=== PATIENT | female | born 1945 | race Caucasian/White ===

== ENCOUNTER 2024-03-26 09:14 | Outpatient (AMB) | payer MEDICARE, BC, SELFPAY ==
--- NOTE | 2024-03-26 09:19 | A.OFFVIS_ITS ---
Vital Signs 03/26/24 09:29 Height 5 ft 2 in Weight 182 lb BMI 33.3 BP 162/78 H Blood Pressure Location Lt brachial Position Sitting Respiration 16 Pulse 82 Pulse Source Pulse Oximeter Pulse Oximetry (%) 96 Oxygen Delivery Method Room Air Intake Visit Reasons: Back Pain Intake Note: Patient comes in for initial visit was referred by [facility]. Shes accompanied by daughter Rosanna. Reports pain 01/03. Accompanied by: Daughter Allergies latex Allergy (Mild, Verified 03/26/24 09:23) Unknown HPI Comments Details: Fina is very pleasant 78 years old female who presents today in my office with complains on pain in the lower back more to the left with radiation into the left lower extremity to the level of the knee and filling of the sensation of the he below the level of the knee. She reports that the pain is most severe when she is standing she reports pain aggravation when she attempts to sit but denies pain with prolonged sitting. She reports flexing forward and flexing backwards equally aggravate her pain. She believes that her pain is related to compression fracture of L5 vertebra which she received in June. Dr. Lena Stringer performed kyphoplasty on the patient however kyphoplasty was not very helpful for her pain control. Because of her pain she is able to sleep normally, but she can not do activities of daily living, she can take care of herself but she can not function normally. She reports that movements aggravate her pain and heat and cold applications as well as oral medications minimally helped her pain. The pain is most severe during the daytime and not as severe at night. In terms of tissue damage she reports her pain as jumping, flushing, shooting, stabbing, lancinating, sharp, lacerating, tingling, stinging, tiring, exhausting, spreading, radiating, piercing. She had multiple diagnostic studies which were performed in [facility] and [facility]. Those studies are not available for me in full extent. The only thing which I was able to see is image of the 3 slides of the MRI patient received before her kyphoplasty. She did not have MRI after kyphoplasty. Her daughter show me on the phone copy of the report of her left hip x-ray demonstrated multiple changes including arthritis of the hip joint as well as spurs in the projection of greater trochanter. She went for physical therapy at [facility] and she reports that physical therapy made it worse and she was not able to do home exercise programs. She was under care of Dr. Luna who performed ?cortisone injection ?on the patient twice. Dr. Luna performed this injections twice the nature of the injections are not known to the patient the anatomical targets are not known to the patient. Somehow she believes that they were disc injections. There is no reports available for me. Past medical history: The patient is suffering from osteoporosis. She is taking alendronate 70 mg q.week. she in the past had 2 compression fractures of L1 and L2 vertebra. Recently she fractured L5 and kyphoplasties were performed and all of them. She reports that she was diagnose with prediabetes and she controls it with the diet. She admits shortness of breath due to deconditioning. She reports fatty liver disease. She denies lung or heart problems. Past surgical history only as above kyphoplasty there is no other surgeries. She denies smoking cigarettes, she drinks 1 alcohol cocktail a week she denies caffeinated beverages and she takes cannabis gummies for pain. [facility] Surgical History (Updated 03/26/24 @ 09:34 by Glenis Hyde) H/O kyphoplasty Review of Systems Const All systems reviewed & are unremarkable except as noted in HPI and below ENT Reports Normal hearing present Card Reports no additional complaints Resp Reports no additional complaints GI Reports no additional complaints Musc Reports as per HPI Neuro Reports Normal hearing present, Denies Abnormal speech present, Denies confusion and Denies Sensory deficit (Neuro) Psych Denies confusion Endo Reports as per HPI Physical Exam Vital Signs: Last Vital Signs Pulse 82 03/26/24 09:29 Resp 16 03/26/24 09:29 BP 162/78 H 03/26/24 09:29 Pulse Ox 96 03/26/24 09:29 Oxygen Delivery Method Room Air 03/26/24 09:29 BMI result Body Mass Index 33.3 Const General: no acute distress; No confusion Nutritional Appearance: obese (Trivial obesity BMI is 33) Orientation/consciousness: patient oriented x3 and No confusion Eyes General: appearance normal, both eyes and all related structures Pupils: Equal, round and reactive pupils present EOM: EOMs intact bilaterally Neck Neck: Yes full ROM Chest Chest palpation & inspection: normal inspection of the chest Resp Effort & Inspection: normal respiratory effort, able to speak in complete sentences, normal respiratory pattern, no audible wheezes and no cough Cardio Jugular venous distension: no JVD GI Inspection: Yes normal to inspection Back/Spine/Pelvis Other: Able to stand on bilateral tiptoes in bilateral heels demonstrating normal strength of bilateral lower extremities. Flexing backwards aggravates pain slightly more than flexing forward. Juan Pablo test is positive on the left. P elvic compression test is positive on the left. Pelvic distraction test is positive on the left. Loading test is positive on the left. Lateral and medial rotation of the hip bilaterally do not cause discomfort in the groin. SLR is negative bilaterally. Dorsiflexion at maximal SLR bilateral does not cause aggravation of the pain in the back. Neuro General: patient oriented x3, gait normal and No confusion Cranial nerves: Yes CN's II-XII intact bilaterally, Yes Equal, round and reactive pupils present, Yes Normal hearing present and Yes Ability to bilaterally elevate shoulders present Speech: No Abnormal speech present Gait exam (Neuro): Normal gait present Motor exam (neuro): 5/5 motor strength present throughout Sensory Exam: No Sensory deficit (Neuro) Extrem General: No pedal edema Psych Speech and movement: Normal speech and movement present Affect: normal affect Attitude: cooperative Thought process: Normal thought process present Thought content: Normal thought content present Insight: Good insight present (Psych) Judgement: Good judgement present (Psych) Assessment & Plan Assessment & Plan (1) Sacroiliitis: Code(s): M46.1 - Sacroiliitis, not elsewhere classified Category: Medical (2) Sacroiliac joint dysfunction of left side: Code(s): M53.3 - Sacrococcygeal disorders, not elsewhere classified Category: Medical (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 I decided to schedule her for sacroiliac joint injection on the left diagnostic. Meanwhile her daughter will go to Dr. Luna's office and request the reports of the previously done injections. If those injections were not sacroiliitis I will continue to pursue sacroiliitis as a goal. If those injections were into sacroiliac joint on the left I will switch my plan to perform diagnostic medial branch block on the left L2-L3, L4, dorsal ramus L5. They will also bring me full disc of the MRI they had performed at [facility]. Evaluation of this MRI will allow me to rule out vertebra genic pain although patient does not complain on pain with prolonged sitting, she although come pain complains on pain with flexing forward and with activities and s tanding. I will see this patient for the follow-up after the procedure. Patient Instructions: I here by testify that I spent 60 minutes in conversation with this patient as well as planning her care and organizing this note. Coding Level of Care Code New Pt Level 5 (09464) Diagnoses Sacroiliitis M46.1 Sacroiliac joint dysfunction of left side M53.3 Spondylosis of lumbar region without myelopathy or radiculopathy M47.816 Osteoporosis M81.0 History of vertebral compression fracture Z87.81
[2024-03-26 09:29] VITALS: BP 162/78; PULSE 82; RESP 16; O2SAT 96; BMI 33.3
== END 2024-03-26 09:53 | disposition home or self-care (01) ==
LOC: HO.PMC 09:15
PROVIDERS: PCP Physician Assistant Medical; Visit Provider Anesthesiology
DX: M46.1 Sacroiliitis, not elsewhere classified (principal); M53.3 Sacrococcygeal disorders, not elsewhere classified; M47.816 Spondylosis without myelopathy or radiculopathy, lumbar region; M81.0 Age-related osteoporosis without current pathological fracture; Z87.81 Personal history of (healed) traumatic fracture
CPT/HCPCS: 99205

== ENCOUNTER → 2024-03-26 09:14 | Outpatient (BNVA) | payer BC, MEDICARE, SELFPAY | PROVIDERS: PCP Physician Assistant Medical; Visit Provider Anesthesiology ==

== ENCOUNTER 2024-06-16 06:21 | Outpatient (REF) | payer BC, SELFPAY | END 2024-06-16 06:22 | disposition home or self-care (01) | LOC: CF 06:21 | PROVIDERS: Visit Provider Anesthesiology | DX: Z13.89 Encounter for screening for other disorder (principal) ==

== ENCOUNTER 2024-09-01 06:12 | Outpatient (REF) | payer BC, SELFPAY ==
--- NOTE | ~2024-09-01 | FL_ITS ---
EXAMINATION: FL GUIDANCE ONLY HISTORY: M47.816 - Spondylosis without myelopathy or radiculopathy, lumbar region COMPARISON: None available. TECHNIQUE: Fluoroscopy time: 25.8 seconds. Cumulative Dose: 9.8227 mGy. DAP: 3.6915 mGym2 Images: 8. FINDINGS: Images demonstrate needles and contrast material in the regions of the left L3-4, L4-5, and L5-S1 facet joints, as well as the right L5-S1 facet joint. FL/FL guidance in treatment room IMPRESSION: Fluoroscopy during procedure. Please see procedure report for additional information. Electronically signed by: James Lance MD 09/01/2024 09:23 AM EDT
--- OUTSIDE RECORDS SUMMARY | 2024-09-01 06:15 | XMS_ITS | Clinical Summary ---
Author Organization [facility] Address [address] [place] [address] Care Team Providers Care Charger Operator Name Role Phone Braulio Merlos PA-C Primary Care Provider Allergies Active Allergy Reactions Criticality Noted Date Comments Latex 12/09/2019 Oxycodone Swelling 03/10/2020 Hydrocodone-Acetaminophen 12/09/2019 Medications Medication Sig Dispensed Refills Start Date End Date Status celecoxib (CeleBREX) 200 MG capsule Take 1 capsule (200 mg total) by mouth daily. 0 Active omeprazole (PriLOSEC) 20 MG capsule Take 1 capsule (20 mg total) by mouth daily. 0 Active traMADol (ULTRAM) 50 MG tablet Take 50 mg by mouth every 6 (six) hours as needed for pain. 0 Active atorvastatin (LIPITOR) tablet 10 mg Take 1 tablet (10 mg total) by mouth every evening. 0 Active loratadine (CLARITIN) 10 MG tablet Take 1 tablet (10 mg total) by mouth daily. 0 Active aspirin EC 81 MG tablet Take 1 tablet (81 mg total) by mouth daily. 0 Active hydrocortisone 2.5 % cream Apply topically 2 (two) times a day. 0 Active Multiple Vitamin (MULTIVITAMIN PO) Take by mouth. 0 Act kerrie Calcium Carb-Cholecalcifero l (CALCIUM 600 + D) 600-200 MG-UNIT TABS Take by mouth. 0 Active alendronate (FOSAMAX) tablet 70 mg Take 1 tablet (70 mg total) by mouth every 7 days. Take with water on empty stomach/Nothing by mouth and do not lie down for next 30 minutes 0 Active hydroxyurea (HYDREA) 500 MG capsule TAKE 1 CAPSULE (500 MG TOTAL) BY MOUTH DAILY 90 capsule 6 06/05/2023 Active Active Problems No known active problems Family History Medical History Relation Name Comments Other Brother sudden leland gging Lung cancer Father Other Father CAD in his 60's Prostate cancer Father Arthritis Mother Pancreatic cancer Other aunt Diabetes Paternal Grandmother Melanoma Paternal Grandmother Other Paternal Grandmother dermato loical disorders Uterine cancer Paternal Grandmother Relation Name Status Comments Brother Father Mother Other aunt Alive Paternal Grandmother Social History Tobacco Use Types Packs/Day Years Used Date Smoking Tobacco: Never Smokeless Tobacco: Never Alcohol Use Standard Drinks/Week Comments Yes 0 (1 standard drink = 0.6 oz pur e alcohol) Sex and Gender Information Value Date Recorded Sex Assigned at Not on file Gender Identity Not on file Sexual Orientation Not on file Job Start Date Occupation Industry Not on file Not on file Not on file Last Filed Vital Signs Vital Sign Reading Time Taken Comments Blood Pressure 150/73 11/06/2023 10:03 AM EDT Pulse 100 11/06/2023 10:03 AM EDT Temperature 36.7 ??C (98.1 ??F) 11/06/2023 10:03 AM E DT Respiratory Rate - - Oxygen Saturation 98% 11/06/2023 10:03 AM EDT Inhaled Oxygen Concentration - - Weight 84.6 kg (186 lb 9.6 oz) 11/06/2023 10:03 AM EDT Height 160 cm (5' 3 ) 11/06/2023 10:03 AM EDT Body Mass Index 33.05 11/06/2023 10:03 AM EDT Plan of Treatment Health Maintenance Due Date Last Done Comments Hepatitis C Screening 1945 COVID-19 Vaccine (#1) 1950 Depression Screening 1957 BMI Counseling 08/13/1963 Preventative Health Evaluation 08/13/1963 DTap / Tdap / Td (1 - Tdap) 1964 Fall Risk Assessment 2010 Osteoporosis Screening (DEXA Scan) 2010 RSV Adult > 60+ Yrs or (1 - 1-dose 75+ series) 2020 Influenza Vaccine (#1) 2024 3, 03/16/2022, 03/21/2021, Additional history exists Pneumococcal Vaccine Completed 09/30/2014, 06/27/19 12 Shingrix-Zoster Vaccine Completed 05/12/2019, 11/10 Hepatitis B Vaccines Aged Out No long er eligible based on patient's age to complete this topic RSV Ped < 20 months Aged Out No longe r eligible based on patient's age to complete this topic Care Teams Charger Operator Relationship Specialty Start Date End Date Braulio Merlos, PASatishC PCP - General Medical Services 10/05/20
--- OUTSIDE RECORDS SUMMARY | 2024-09-01 06:15 | XMS_ITS | Patient Health Record ---
Author Organization [facility] [place] Address [address] [place] [address] Care Team Providers Care Veneer Glue Spreader Name Role Phone Braulio [place] Primary Care Provider Unav ailable Rik Trivedi Unavailable [phone] Allergies Allergen (clinical drug ingredient) Drug/Non Drug Allergy documented on EMR Reaction Allergy Type Onset Date Status Roxicet face swelling Drug Allergy Act kerrie Reason For Referral No Information Medications Medication SIG (Take, Route, Frequency, Duration) Notes Start Date End Date Status Omeprazole 20 MG 1 tablet 30 minutes before morning meal Orally Once a day for 30 day(s) Active Hydroxyurea 500 MG 1 capsule Orally Onc e a day for 30 day(s) Active Aspir-81 Active Celecoxib 200 MG 1 capsule with food Orally Once a day for 30 day(s) Active Atorvastatin Calcium 10 MG 1 tablet Oral ly Once a day for 30 day(s) Active Immunizations Vaccine Route Administration Date Status Comme nts COVID-19 Moderna Vaccine Unknown 02/24/2021 Administered 1st 07/25/20 2nd 08/22/20 Social History Tobacco Use: Social History Observation Description Date Details (start date - stop date) Never Smoker NA - NA Tobacco Use/Smoking Question Answer Notes Are you a: nonsmoker Additional Findings: Tobacco Non-User Current no n-smoker Alcohol Screen Question Answer Notes Did you have a drink contain ing alcohol in the past year? Yes How often did you have a dri nk containing alcohol in the past year? 2 to 4 times a month (2 points) Points 2 Interpretation Negative Tobacco use other than smoking: Question Answer Notes Are you an other tobacco user? No Problems Problem Type SNOMED Code ICD Code Onset Dates Problem Status W/U Status Risk Notes Problem [id number] Leg length discrepancy (M21.70) Active confirmed Plan Of Treatment Pending Test Test Name Order Date X ray : Foot, left 3V 06/20/2021 Insurance Providers Payer Name Payer Address Payer Phone Subscriber Number Group Number Insured Name Patient Relationship to Insured Coverage Start Date Coverage End Date [employer] [address] [place] [phone] [id number] Fina Lin Self - patient is the insured [facility] [address] [place] [address] [phone] [id number] Fina Lin Self - patient is the insured Medical (General) History Medical History History ICD Code Arthritis Back,Hip,and Knee pain CAD (Cholesterol) Chicken pox Measles Numbness Osteoporosis Sciatica Surgical History Surgery Date(Month/Year)
--- OUTSIDE RECORDS SUMMARY | 2024-09-01 06:15 | XMS_ITS | Clinical Summary ---
Author Organization [facility] Address [address] [place] [address] Phone Care Team Providers Care Personnel Security Assistant Name Role Phone Braulio Merlos Primary Care Provider [phone] Allergies Active Allergy Reactions Criticality Noted Date Comments Hydrocodone-Acetaminophen 12/09/2019 Latex 12/09/2019 Oxycodone Swelling 03/10/2020 Oxycodone-Acetaminophen Numbness High 06/08/2005 Medications aspirin 81 mg EC tablet Take 1 tablet (81 mg total) by mouth 1 (one) time each day. Active atorvastatin (LIPITOR) 10 mg tablet Take 1 tablet (10 mg total) by mouth every evening. Active calcium carbonate-justo min D3 600 mg-5 mcg (200 unit) per tablet Take by mouth. Active hydrocortisone 2.5 % cream Apply topically 2 (two) times a day. Active loratadine (CLARITIN) 10 mg tablet Take 1 tablet (10 mg total) by mouth 1 (one) time each day. Active multivitamin tablet Take by mouth. Active alendronate (FOSAMAX) 70 mg tablet TAKE 1 TABLET BY MOUTH EVERY 7 DAYS 12 tablet 1 03/31/20 24 Active omeprazole (PriLOSEC) [address] capsule TAKE 1 CAPSULE BY MOUTH TWICE A DAY 180 capsule 1 04/04/20 24 Active celecoxib (CeleBREX) 200 mg capsule TAKE 1 CAPSULE BY MOUTH TWICE A DAY 180 capsule 1 05/12/20 24 Active losartan (Cozaar) 25 mg tablet Take 1 tablet (25 mg total) by mouth 1 (one) time each day. 30 each 11 07/13/19 25 026 Active brimonidine (ALPHAGAN P) 0.15 % ophthalmic solution INSTILL 1 DROP INTO RIGHT EYE EVERY 12 HOURS 05/29/19 25 Active dorzolamide (TRUSOPT) 2 % ophthalmic solution INSTILL 1 DROP INTO BOTH EYES EVERY TWELVE HOURS INSTILL 1 DROP INTO BOTH EYES EVERY 12 HOURS 07/13/19 25 Active latanoprost (XALATAN) 0.005 % ophthalmic solution INSTILL 1 DROP IN AFFECTED EYE (S) EVERY EVENING 07/22/19 25 Active timolol (TIMOPTIC-XR) 0.5 % ophthalmic gel-forming INSTILL 1 DROP INTO BOTH EYES EVERY MORNING 05/23/20 24 Active gabapentin (NEURONTIN) 300 mg capsule Take 1 capsule (300 mg total) by mouth 3 (three) times a day. 90 each 5 07/31/19 25 025 Active hydroxyurea (HYDREA) 500 mg capsule Take 1 capsule (500 mg total) by mouth 3 (three) times a week 36 capsule 1 08/27/19 25 Active hydroxyurea (HYDREA) 500 mg capsule Take 1 capsule (500 mg total) by mouth 1 (one) time each day 06/05/19 24 025 Discontinued traMADoL (ULTRAM) 50 mg tablet Take 1 tablet (50 mg total) by mouth every 6 (six) hours if needed for moderate pain for up to 7 days. Max Daily Amount: 200 mg 28 tablet 07/31/19 25 025 Active Problems Problem Noted Date Diagnosed Date Fatty liver 04/03/2024 Passage of loose stools 04/03/2024 Sacroiliitis 12/06/2023 Overview (04/03/2024): Last Assessment & Plan: Ms. Lin has persistent pain primarily at the left buttock, lower than what she is experiencing preop with less pain radiating to the hip. However, this creates significant trouble for her standing long periods of time and she is now walking with a cane. This localized pain is worst in the morning and the transition from laying to standing. She has no issues sleeping or laying on her sides and is actually most comfortable driving with an ice pack behind her back across the lumbosacral junction slightly more to the left. She was in physical therapy directed at the sacroiliitis and felt that she was making some progress. She had a Holter early due to an insurance issue and she is continue doing the home exercise program. She underwent a left SI injection by Dr. Luna on 11/22/2023 and so far has not seen any improvement. On exam, SLR is negative, strength 5/5. She has some sharp pain in the left SI region with left hip mechanical testing on internal rotation only. She is quite flexible and with external rotation, can bring her ankle over the right knee and towards her hip. At this point, she would like to resume physical therapy and a new referral slip was provided. She has follow-up with Dr. Luna next week and can discuss if any other treatment options are available. I would be happy to provide a prescription for an SI belt if PT thinks this would help her. Lumbar compression fracture 11/06/2022 Overview (04/03/2024): Last Assessment & Plan: Ms. Lin is here for second postop visit since an L5 kyphoplasty on 10/07/2023. She had some improvement in her pain immediately after surgery but describes now different set of symptoms with pain and a more caudal location focused in the left buttock and worse with standing. We obtained repeat lumbar x-rays and there was no evidence of a new fracture. She has healed well from this procedure and is undergoing treatment for sacroiliitis. 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 Overview (04/03/2024): IMO update Disorder of bone and cartilage 06/07/2005 Overview (04/03/2024): IMO update Lumbago 06/07/2005 Encounters Date Type Department Care Team Description 07/30/2024 8:30 AM EST Office Visit Adult Medicine [address] [phone] Braulio Merlos PA Compression fracture of lumbar vertebra, unspecified lumbar vertebral level, sequela (Primary Dx); Mixed hyperlipidemia; Impaired fasting blood sugar; Fatty liver; Essential thrombocytosis (CMS/HCC); JUAN-2 gene mutation; Severe obesity (BMI 35.0-39.9) with comorbidity (CMS/HCC); Prediabetes; Neuropathy; Heartburn; Hiatal hernia 07/29/2024 10:00 AM EST Office Visit [facility] Hematology Oncology [address] [place] [phone] Tequila Mota MD Essential thrombocytosis (CMS/HCC) (Primary Dx); JUAN-2 gene mutation 07/16/2024 Telephone Adult Medicine [address] [phone] Braulio Merlos PA Referral 07/13/2024 Telephone Adult Medicine [address] [phone] Braulio Merlos PA Medication Problem 06/30/2024 8:45 AM EST Office Visit Adult Medicine [address] [phone] Rodrick Donis NP Acute cystitis without hematuria (Primary Dx); Uncontrolled hypertension from Last 3 Months Immunizations Name Administration Dates Next Due Hepatitis A Adult (Havrix; V aqta) 19yo and older 12/26/2007,10/03/2006 Influenza trivalent, 0.5mL ( Fluad) 65yo and older 03/13/2023,03/16/2022,03/21/2021,02/27,02/24/2019,02/04/2018,03/24/2017 Influenza trivalent, 0.5mL, preservative free (Fluarix; FluLaval; Fluzone) ages 6mo and older (Afluria) 3 years and older 02/26/2016,02/23/2015,03/03/2014,02/10,02/22/2012,02/28/2011,03/31/2010 ,02/25/2009,04/29/2006 Influenza, Unspecified 02/26/2021 Moderna Covid-19 Bivalent, O riginal + Ba.1 (Non-US Tradename Spikevax Bivalent) 01/30/2022 Pneumococcal conjugate 13 va lent (Prevnar 13, PCV13) 2mo and older 09/30/2014 Pneumococcal polysaccharide 23 valent (Pneumovax 23) 2yo and older 06/27/2011 Respiratory syncytial virus (RSV), unspecified 01/29/2023 Td Tetanus diptheria (Tdvax) 7yo and older 07/08/2017,10/03/2006 Zoster Live 01/18/2009 Zoster recombinant (Shingrix ) 19yo and older 05/12/2019,11/10/2018 Medical History Medical History Date Comments Essential thrombocytosis DX:Esse ntial thrombocytosis (HCC);COMMENT:JUAN 2 mutation pos followed by dr. prescott Prediabetes DX:Prediabetes GERD (gastroesophageal reflux disease) DX:GERD (gastroesophageal reflux disease) Neuropathy DX:Neuropathy Mixed hyperlipidemia DX:Mixed hy perlipidemia Overweight DX:Overweight Family history of colonic polyps DX:Family history of colonic polyps;COMMENT:dad &brother pt withn hyperplastic colon polyps seen on colonoscopy in july 2006 Heartburn DX:Heartburn Hx of low back pain DX:Hx of low back pain History of osteopenia DX:History of osteopenia Family History Medical History Relation Name Comments Other: Brother sudden leland gging Lung cancer Father Other: Father CAD in his 60's Prostate cancer Father Arthritis Mother Pancreatic cancer Other aunt Diabetes Paternal Grandmother Melanoma Paternal Grandmother Other: Paternal Grandmother dermato loical disorders Uterine cancer Paternal Grandmother Relation Name Status Comments Brother Father Mother Other aunt Alive Paternal Grandmother Social History Tobacco Use Types Packs/Day Years Used Date Smoking Tobacco: Never Smokeless Tobacco: Never Tobacco Cessation:Counseling Given: Not Answered Alcohol Use Standard Drinks/Week Comments Yes 0 (1 standard drink = 0.6 oz pur e alcohol) Comments Unknown Sex and Gender Information Value Date Recorded Sex Assigned at Female 04/30/2024 9:40 AM EST Legal Sex Female 10:43 PM EST Gender Identity Female 04/30/2024 9:40 AM EST Sexual Orientation Not on file Obstetrics History Last Filed Vital Signs Vital Sign Reading Time Taken Comments Blood Pressure 111/67 07/30/2024 8:37 AM EST Pulse 64 07/30/2024 8:37 AM EST Temperature 35.8 ??C (96.5 ??F) 07/30/2024 8:37 AM ES T Respiratory Rate 14 07/30/2024 8:37 AM EST Oxygen Saturation 97% 07/29/2024 10:19 AM EST Inhaled Oxygen Concentration - - Weight 84.4 kg (186 lb) 07/30/2024 8:37 AM EST Height 157.5 cm (5' 2 ) 07/30/2024 8:37 AM EST Body Mass Index 34.02 07/30/2024 8:37 AM EST Plan of Treatment Upcoming Encounters Date Type Department Care Team (Late st Contact Info) Description 09/21/2024 8:45 AM EDT Office Visit Adult Medicine [facility] [address] [place] [address] Braulio Merlos PA [address] [place] [address] 04/28/2025 10:00 AM EST Office Visit [facility] Hematology Oncology [address] [place] [phone] Tequila Mota MD [address] [place] [address] Health Maintenance Due Date Last Done Comments Hepatitis B Vaccines (1 of 3 - Risk 3-dose series) 2005 RSV Immunization Adult Patients (1 - 1-dose 75+ series) 2020 01/29/2023 Depression Screening 05/04/2022 Falls Risk Assessment 05/04/2022 Hepatitis C Screening 05/04/2022 Medicare Annual Wellness Visit 05/04/2022 Social Influencers of Health Screening 05/04/2022 Hypertension/CHF/CAD Annual BMP Blood Test 07/24/2025 07/24/2024, 06/30/2024, 01/28/2024, Additional history exists DTaP,Tdap,and Td Vaccines (3 - Td or Tdap) 07/08/2027 07/08/2017, 10/03/2006 Cholesterol Screening (Lipid Panel) 01/27/2029 01/28/2024, 11/04/2023 Osteoporosis Screening (Bone Density Screening) 11/02/2032 11/02/2022, 09/19/2020 Hepatitis A Vaccines Completed 12/26/2007, 10/04/19 07 Pneumococcal Vaccine: 50+ Years Completed 09/30/2014, 06/27/2011 Zoster Vaccines Completed 05/12/2019, 10/25, 02/08/2018, Additional history exists RSV Immunization Patients Under 20 months Aged Out 01/29/2023 No longer eligible based on patient's age to complete this topic COVID-19 Vaccine Completed 03/25/2024, , 01/30/2022, Additional history exists Influenza Vaccine Completed 03/25/2024, , 03/16/2022, Additional history exists HIB Vaccines Aged Out No longer eligi ble based on patient's age to complete this topic HPV Vaccines Aged Out No longer eligi ble based on patient's age to complete this topic IPV Vaccines Aged Out No longer eligi ble based on patient's age to complete this topic MMR Vaccines Aged Out No longer eligi ble based on patient's age to complete this topic Meningococcal ACWY Vaccine Aged Out N o longer eligible based on patient's age to complete this topic Meningococcal B Vaccine Aged Out No l onger eligible based on patient's age to complete this topic Varicella Vaccines Aged Out No longer eligible based on patient's age to complete this topic Procedures Procedure Name Priority Date/Time Associated Diagnosis Comments ..MISCELLANEOUS REFERENCE LAB TEST 07/29/2024 MANUAL DIFFERENTIAL - SYSMEX WAM Routine 07/24/2024 12:30 PM EST Thrombocythemia, essential (CMS/HCC) CBC WITH AUTO DIFFERENTIAL Routine 07/24/2024 12:30 PM EST Thrombocythemia, essential (CMS/HCC) CBC AND DIFFERENTIAL Routine 07/24/2024 12:30 PM EST Thrombocythemia, essential (CMS/HCC) COMPREHENSIVE METABOLIC PANEL Routine 07/24/2024 12:30 PM EST Thrombocythemia, essential (CMS/HCC) BRUNO URINE CULTURE TUBE Routine 06/30/2024 10:17 AM EST Dysuria Uncontrolled hypertension URINALYSIS WITH REFLEX MICROSCOPIC AND CULTURE Routine 06/30/2024 10:16 AM EST Dysuria Uncontrolled hypertension BASIC METABOLIC PANEL Routine 06/30/2024 10:16 AM EST Dysuria Uncontrolled hypertension URINALYSIS WITH REFLEX MICROSCOPIC AND CULTURE Routine 06/30/2024 10:16 AM EST Dysuria Uncontrolled hypertension CULTURE URINE Routine 06/30/2024 10:16 AM EST Dysuria Uncontrolled hypertension DXA BONE DENSITY STUDY 1+ SITS AXIAL SKEL Routine 11/02/2022 9:46 AM EDT Prediabetes Mixed hyperlipidemia Heartburn Fatty (change of) liver, not elsewhere classified Essential (hemorrhagic) thrombocythemia (CMS/HCC) from Last 3 Months or Most Recently Relevant to Health Maintenance Results * Miscellaneous reference lab test (07/29/2024) us Provider Onbase MD LAB BLOOD ORDERABLES Final Re sult * (ABNORMAL) Manual differential (07/24/2024 12:30 PM EST) Neutrophils % 53.0 % LAB HEMETOLOGY METHOD 07/24/2024 2:01 PM EST [facility] Lymphocytes % 19.0 % LAB HEMETOLOGY METHOD 07/24/2024 2:[address] [facility] Reactive Lymphocyte 18.00 % LAB HEMETOLOGY METHOD 07/24/2024 2:[address] [facility] Monocytes % 5.0 % LAB HEMETOLOGY METHOD 07/24/2024 2:[address] [facility] Eosinophils % 4.0 % LAB HEMETOLOGY METHOD 07/24/2024 2:[address] [facility] Basophils % 1.0 % LAB HEMETOLOGY METHOD 07/24/2024 2:[address] [facility] Myelocytes % 1.0(H) % LAB HEMETOLOGY METHOD 07/24/2024 2:[address] [facility] Neutrophils Absolute Manual 3.71 1.50 - 7.00 K/mcL LAB HEMETOLOGY METHOD 07/24/2024 2:[address] [facility] Lymphocytes Absolute 1.33 1.00 - 5.00 K/mcL LAB HEMETOLOGY METHOD 07/24/2024 2:[address] [facility] Reactive Lymph Abs Manual 1.26(H) 0.00 - 0.00 lym LAB HEMETOLOGY METHOD 07/24/2024 2:[address] [facility] Monocytes Absolute Manual 0.35 0.20 - 1.00 K/mcL LAB HEMETOLOGY METHOD 07/24/2024 2:[address] [facility] Eosinophils Absolute Manual 0.28 0.00 - 0.50 K/mcL LAB HEMETOLOGY METHOD 07/24/2024 2:[address] [facility] Basophils Absolute Manual 0.07 0.00 - 0.20 K/mcL LAB HEMETOLOGY METHOD 07/24/2024 2:[address] [facility] Myelocytes Absolute Manual 0.07(H) 0.00 - 0.00 K/mcL LAB HEMETOLOGY METHOD 07/24/2024 2:[address] [facility] Rbc Morphology Consistent with indices Consistent with indices, Normal for [place] LAB HEMETOLOGY METHOD 07/24/2024 2:[address] [facility] Platelet Morphology - WAM See Note(A) Normal LAB HEMETOLOGY METHOD 07/24/2024 2:[address] [facility] Comment:PLT: Normal Blood Venous blood specimen / Unknown Venipuncture / Unknown 07/24/2024 12:30 PM EST 07/24/2024 1:16 PM EST us Tequila Mota MD LAB BLOOD ORDERABLES Final R esult [facility] [address] [place] [address], * (ABNORMAL) CBC auto differential (07/24/2024 12:30 PM EST) WBC 7.0 4.8 - 10.8 K/mcL LAB HEMETOLOGY METHOD 07/24/2024 2:[address] [facility] RBC 4.10 3.80 - 4.80 M/mcL LAB HEMETOLOGY METHOD 07/24/2024 2:[address] [facility] Hemoglobin 12.9 11.5 - 16.0 g/dL LAB HEMETOLOGY METHOD 07/24/2024 2:[address] [facility] Hematocrit 40.0 35.0 - 47.0 % LAB HEMETOLOGY METHOD 07/24/2024 2:[address] [facility] MCV 97.3 79.0 - 98.0 FL LAB HEMETOLOGY METHOD 07/24/2024 2:[address] [facility] MCH 31.4 27.0 - 32.0 pcg LAB HEMETOLOGY METHOD 07/24/2024 2:[address] [facility] MCHC 32.3 32.0 - 37.0 g/dL LAB HEMETOLOGY METHOD 07/24/2024 2:01 PM EST [facility] RDW 13.7 11.0 - 15.0 % LAB HEMETOLOGY METHOD 07/24/2024 2:[address] [facility] Platelets 891(H) 130 - 400 K/mcL LAB HEMETOLOGY METHOD 07/24/2024 2:[address] [facility] MPV 9.5 7.0 - 11.0 FL LAB HEMETOLOGY METHOD 07/24/2024 2:01 PM EST [facility] NRBC 0.0 <1.0 % LAB HEMETOLOGY METHOD 07/24/2024 2:[address] [facility] NRBC Absolute 0.00 <0.10 K/mcL LAB HEMETOLOGY METHOD 07/24/2024 2:[address] [facility] Blood Venous blood specimen / Unknown Venipuncture / Unknown 07/24/2024 12:30 PM EST 07/24/2024 1:16 PM EST us Tequila Mota MD LAB BLOOD ORDERABLES Final R esult [facility] [address] [place] [address], * (ABNORMAL) Comprehensive metabolic panel (07/24/2024 12:30 PM EST) Sodium 135 133 - 145 mmol/L LAB CHEMISTRY METHOD 07/24/2024 1:[address] [facility] Potassium 4.5 3.5 - 5.5 mmol/L LAB CHEMISTRY METHOD 07/24/2024 1:[address] [facility] Chloride 102 96 - 110 mmol/L LAB CHEMISTRY METHOD 07/24/2024 1:[address] [facility] CO2 24 21 - 32 mmol/L LAB CHEMISTRY METHOD 07/24/2024 1:[address] [facility] Anion Gap 9 3 - 11 LAB CHEMISTRY METHOD 07/24/2024 1:[address] [facility] Glucose 154(H) 70 - 100 mg/dL LAB CHEMISTRY METHOD 07/24/2024 1:[address] [facility] BUN 16 5 - 25 mg/dL LAB CHEMISTRY METHOD 07/24/2024 1:[address] [facility] Creatinine 0.66 0.50 - 1.10 mg/dL LAB CHEMISTRY METHOD 07/24/2024 1:[address] [facility] eGFR 90 >=60 mL/min/1. 73m2 LAB CHEMISTRY METHOD 07/24/2024 1:[address] [facility] Comment:Calculation based on the??Chronic Kidney Disease Epidemiology Collaboration (CKD-EPI) equation refit??without adjustment for race. BUN/Creatinine Ratio 24.2 LAB CHEMISTRY METHOD 07/24/2024 1:[address] [facility] Calcium 9.8 8.5 - 10.5 mg/dL LAB CHEMISTRY METHOD 07/24/2024 1:[address] [facility] AST (SGOT) 23 10 - 42 unit/L LAB CHEMISTRY METHOD 07/24/2024 1:[address] [facility] ALT (SGPT) 29 10 - 60 unit/L LAB CHEMISTRY METHOD 07/24/2024 1:[address] [facility] Alkaline Phosphatase 62 42 - 121 unit/L LAB CHEMISTRY METHOD 07/24/2024 1:[address] [facility] Total Protein 6.8 6.0 - 8.0 g/dL LAB CHEMISTRY METHOD 07/24/2024 1:[address] [facility] Albumin 3.6 3.2 - 5.0 g/dL LAB CHEMISTRY METHOD 07/24/2024 1:[address] [facility] Total Bilirubin 0.8 0.0 - 1.4 mg/dL LAB CHEMISTRY METHOD 07/24/2024 1:[address] [facility] Blood Venous blood specimen / Unknown Venipuncture / Unknown 07/24/2024 12:30 PM EST 07/24/2024 1:17 PM EST Tequila Mota MD LAB BLOOD ORDERABLES Final R esult [facility] [address] [place] [address], [place] [phone] * Bruno urine culture tube (06/30/2024 10:17 AM EST) Pathologist [facility] Extra Tube Hold for add-ons. 06/30/2024 12:[address] [facility] Comment:Auto resulted. Urine Urine specimen obtained by clean catch procedure / Unknown Non-blood Collection / Unknown 06/30/2024 10:17 AM EST 06/30/2024 10:17 AM EST Rodrick Donis PERFUME COMPOUNDER LAB URINE ORDERABLES Final R esult Performing Organization Address City/[facility]/ZIP Co de Phone Number [facility] [address] [place] [address], [place] [phone] * (ABNORMAL) Urinalysis with reflex microscopic and culture (06/30/2024 10:16 AM EST) Pathologist [facility] Specific [place] Urine 1.012 1.003 - 1.030 LAB URINALYSIS - AUTOMATED METHOD 06/30/2024 12:[address] [facility] pH, Urine 5.0 5.0 - 8.0 pH LAB URINALYSIS - AUTOMATED METHOD 06/30/2024 12:[address] [facility] Leukocytes, Urine Large(A) Negative LAB URINALYSIS - AUTOMATED METHOD 06/30/2024 12:[address] [facility] Nitrite, Urine Positive(A) Negative LAB URINALYSIS - AUTOMATED METHOD 06/30/2024 12:[address] [facility] Protein, Urine Trace <=Trace mg/dL LAB URINALYSIS - AUTOMATED METHOD 06/30/2024 12:[address] [facility] Glucose, Urine Negative Negative mg/dL LAB URINALYSIS - AUTOMATED METHOD 06/30/2024 12:[address] [facility] Ketones, Urine Negative Negative mg/dL LAB URINALYSIS - AUTOMATED METHOD 06/30/2024 12:[address] [facility] Urobilinogen , Urine 1.0 0.2 - 1.0 mg/dL LAB URINALYSIS - AUTOMATED METHOD 06/30/2024 12:[address] [facility] Bilirubin, Urine Small(A) Negative LAB URINALYSIS - AUTOMATED METHOD 06/30/2024 12:[address] [facility] Blood, Urine Negative Negative LAB URINALYSIS - AUTOMATED METHOD 06/30/2024 12:[address] [facility] RBC, Urine 7.6(H) 0 - 4 /HPF LAB URINALYSIS - AUTOMATED METHOD 06/30/2024 12:[address] [facility] WBC, Urine 13.2(H) 0 - 4 /HPF LAB URINALYSIS - AUTOMATED METHOD 06/30/2024 12:[address] [facility] Squamous Epithelial, Urine 32 0 - 60 /LPF LAB URINALYSIS - AUTOMATED METHOD 06/30/2024 12:[address] [facility] Bacteria, Urine Many(A) Negative /HPF LAB URINALYSIS - AUTOMATED METHOD 06/30/2024 12:[address] [facility] Hyaline Casts, Urine 2.0 0 - 3 /LPF LAB URINALYSIS - AUTOMATED METHOD 06/30/2024 12:[address] [facility] Urine Urine specimen obtained by clean catch procedure / Unknown Non-blood Collection / Unknown 06/30/2024 10:16 AM EST 06/30/2024 10:16 AM EST Rodrick Donis PERFUME COMPOUNDER LAB URINE ORDERABLES Final R esult Performing Organization Address City/[facility]/ZIP Co de Phone Number [facility] [address] [place] [address], [place] [phone] * (ABNORMAL) Culture urine (06/30/2024 10:16 AM EST) Culture, Urine 50,000-100,000 CFU/mL Escherichia coli(A) [place] 07/02/2024 10:20 AM EST [facility] Urine Urine specimen obtained by clean catch procedure / Unknown Non-blood Collection / Unknown 06/30/2024 10:16 AM EST 06/30/2024 12:00 PM EST Narrative Organism Antibiotic Method Susceptibility Escherichia coli Amoxicillin/Clavulanate [place]AK[place] <=2 ug/ml: Susceptible Escherichia coli Ampicillin/Sulbactam [place] <=2 ug/ml: Susceptible Escherichia coli Piperacillin/Tazobactam [place] <=4 ug/ml: Susceptible Escherichia coli Cefazolin (Urine) [place] 2 ug/ml: Susceptible Escherichia coli Cefoxitin [place] <=4 ug/ml: Susceptible Escherichia coli Ceftazidime [place] <=0.5 ug/ml: Susceptible Escherichia coli Ceftriaxone [place] <=0.25 ug/ml: Susceptible Escherichia coli Cefepime [place] <=0.12 ug/ml: Susceptible Escherichia coli Meropenem [place] <=0.25 ug/ml: Susceptible Escherichia coli Amikacin [place] 2 ug/ml: Susceptible Escherichia coli Gentamicin [place] <=1 ug/ml: Susceptible Escherichia coli Ciprofloxacin [place] <=0.06 ug/ml: Susceptible Escherichia coli Levofloxacin [place] <=0.12 ug/ml: Susceptible Escherichia coli Nitrofurantoin [place] <=16 ug/ml: Susceptible Escherichia coli Trimethoprim/Sulfamethoxazole [place] <=20 ug/ml: Susceptible Rodrick Donis PERFUME COMPOUNDER LAB MICROBIOLOGY - GENERAL O RDERABLES Final Result [facility] [address] [place] [address], [place] [phone] * (ABNORMAL) Basic metabolic panel (06/30/2024 10:16 AM EST) Sodium 136 133 - 145 mmol/L LAB CHEMISTRY METHOD 06/30/2024 12:[address] [facility] Potassium 4.5 3.5 - 5.5 mmol/L LAB CHEMISTRY METHOD 06/30/2024 12:[address] [facility] Chloride 103 96 - 110 mmol/L LAB CHEMISTRY METHOD 06/30/2024 12:[address] [facility] CO2 27 21 - 32 mmol/L LAB CHEMISTRY METHOD 06/30/2024 12:[address] [facility] Anion Gap 6 3 - 11 LAB CHEMISTRY METHOD 06/30/2024 12:[address] [facility] Glucose 122(H) 70 - 100 mg/dL LAB CHEMISTRY METHOD 06/30/2024 12:[address] [facility] BUN 18 5 - 25 mg/dL LAB CHEMISTRY METHOD 06/30/2024 12:[address] [facility] Creatinine 0.70 0.50 - 1.10 mg/dL LAB CHEMISTRY METHOD 06/30/2024 12:[address] [facility] eGFR 89 >=60 mL/min/1. 73m2 LAB CHEMISTRY METHOD 06/30/2024 12:[address] [facility] Comment:Calculation based on the??Chronic Kidney Disease Epidemiology Collaboration (CKD-EPI) equation refit??without adjustment for race. BUN/Creatinine Ratio 25.7 LAB CHEMISTRY METHOD 06/30/2024 12:[address] [facility] Calcium 9.7 8.5 - 10.5 mg/dL LAB CHEMISTRY METHOD 06/30/2024 12:[address] [facility] Blood Venous blood specimen / Unknown Venipuncture / Unknown 06/30/2024 10:16 AM EST 06/30/2024 10:16 AM EST Rodrick Donis NP LAB BLOOD ORDERABLES Final R esult [facility] [address] [place] [address], * DXA BONE DENSITY STUDY 1+ SITS AXIAL SKEL (11/02/2022 9:46 AM EDT) Anatomical Region Laterality Modality Bone Densitometr y 10/05/2022 8:44 AM EDT Narrative 11/02/2022 12:44 PM EDT BONE DENSITY (DEXA) ? Lumbar Spine T-score is -1.9. ?? (SD relative to 20-29 y/o adult) Z-score is 0.7. ??(SD relative to age matched peers) This is considered osteopenia by WHO criteria. Left Hip T-score is -2.0. Z-score is 0.2. This is considered osteopenia by WHO criteria. Lateral view of the spine demonstrates severe compression of T12 vertebral body and moderate compression of L1 vertebral body. IMPRESSION: In the absence of trauma, compression fractures are considered presumptive evidence of osteoporosis. ??Clinical correlation suggested. The [facility] Department of Internal Medicine recommends using National Osteoporosis Foundation (NOF) guidelines in treatment decisions related to osteoporosis. NOF guidelines suggest considering treatment for postmenopausal women and men aged 50 or older presenting with the following: History of hip or vertebral fracture. T-score = -2.5 (DXA) at the femoral neck, total hip, or spine, after appropriate evaluation to exclude secondary causes. Low bone mass (T-score between -1.0 and -2.5 at the femoral neck or spine) AND a 10-year probability of a hip fracture = 3% OR a 10-year probability of a major osteoporosis-related fracture = 20% based on the [place]-adapted WHO algorithm Please note that all treatment decisions require clinical judgment and consideration of individual patient factors, including patient preferences, co-morbidities, previous drug use, risk factors not captured in the FRAX model (e.g., frailty, falls, vitamin D deficiency, increased bone turnover, interval significant decline in bone density) and possible under- or over-estimation of fracture risk by FRAX. Optional alternative screening schedule based on atul Bolanos., [facility] June 14, 2011 for patients with osteopenia (based on hip BMD T-score) is as follows: * ??advanced osteopenia (T scores -2.00 to -2.49), BMD testing every year * ??moderate osteopenia (T scores -1.50 to -1.99), BMD testing every 5 years mild osteopenia or normal BMD (T scores -1.50 and higher), BMD testing every 15 years Procedure Note Avril Maloney MD - 07/02/2023 BONE DENSITY (DEXA) Lumbar Spine T-score is -1.9. (SD relative to 20-29 y/o adult) Z-score is 0.7. (SD relative to age matched peers) This is considered osteopenia by WHO criteria. Left Hip T-score is -2.0. Z-score is 0.2. This is considered osteopenia by WHO criteria. Lateral view of the spine demonstrates severe compression of T12 vertebralbody and moderate compression of L1 vertebral body. IMPRESSION: In the absence of trauma, compression fractures are considered presumptiveevidence of osteoporosis. Clinical correlation suggested. The [facility] Department of Internal Medicine recommendsusing National Osteoporosis Foundation (NOF) guidelines in treatment decisions related toosteoporosis. NOF guidelines suggest considering treatment for postmenopausal women and menaged 50 or older presenting with the following: History of hip or vertebral fracture. T-score = -2.5 (DXA) at the femoral neck, total hip, or spine, afterappropriate evaluation to exclude secondary causes. Low bone mass (T-score between -1.0 and -2.5 at the femoral neck or spine)AND a 10-year probability of a hip fracture = 3% OR a 10-year probability of a majorosteoporosis-related fracture = 20% based on the [place]-adapted WHO algorithm Please note that all treatment decisions require clinical judgment andconsideration of individual patient factors, including patient preferences, co- morbidities,previous drug use, risk factors not captured in the FRAX model (e.g., frailty, falls, vitaminD deficiency, increased bone turnover, interval significant decline in bone density) andpossible under- or over-estimation of fracture risk by FRAX. Optional alternative screening schedule based on atul Bolanos., NEJMJanuary 2011 for patients with osteopenia (based on hip BMD T-score) is as follows: * advanced osteopenia (T scores -2.00 to -2.49), BMD testing every year * moderate osteopenia (T scores -1.50 to -1.99), BMD testing every 5years mild osteopenia or normal BMD (T scores -1.50 and higher), BMD testingevery 15 years Braulio NAYAK IMAnnemarie DXA PROCEDURES Final Result from Last 3 Months or Most Recently Relevant to Health Maintenance Insurance [facility] Care Teams Personnel Security Assistant Relationship Specialty Start Date End Date Braulio Merlos PA [address] [place] [address] PCP - General Internal Medicine 08/03/20
== END 2024-09-01 06:13 | disposition home or self-care (01) ==
LOC: CF 06:12
PROVIDERS: Visit Provider Anesthesiology
DX: M47.816 Spondylosis without myelopathy or radiculopathy, lumbar region (principal)
CPT/HCPCS: 64493; 64494; J2003; J2795; Q9967

== ENCOUNTER 2024-09-01 08:05 | Outpatient (AMB) | payer BC, SELFPAY ==
[2024-09-01 08:13] VITALS: BP 131/62; PULSE 98; RESP 16; O2SAT 65
--- NOTE | 2024-09-01 08:13 | A.OFFVIS_ITS ---
Vital Signs 09/01/24 08:13 09/01/24 09:12 BP 131/62 148/67 H Blood Pressure Location Lt brachial Lt brachial Position Sitting Sitting Respiration 16 16 Pulse 98 69 Pulse Source Pulse Oximeter Pulse Oximeter Pulse Oximetry (%) 65 L 97 Oxygen Delivery Method Room Air Room Air Intake Visit Reasons: LEFT DIAGNOSTIC L2, L3, L4, DRL5 MBB Manager Grant Required: No Allergies latex Allergy (Mild, Verified 09/01/24 08:14) Unknown Medication List - Last Reconciled 09/01/24 by Rosalia Guzman LPN alendronate 70 mg PO QWEEK aspirin 81 mg PO DAILY atorvastatin 10 mg PO BEDTIME brimonidine 0.15% drps ophthalmic (eye) celecoxib mg PO BID gabapentin 300 mg PO DAILY hydroxyurea 500 mg PO DAILY latanoprost 0.005% drps ophthalmic (eye) omeprazole 20 mg PO BID timolol maleate 0.5% ophthalmic (eye) [facility] Surgical History (Updated 03/26/24 @ 09:34 by Glenis Hyde) H/O kyphoplasty Physical Exam Vital Signs: Last Vital Signs Pulse 69 09/01/24 09:12 Resp 16 09/01/24 09:12 BP 148/67 H 09/01/24 09:12 Pulse Ox 97 09/01/24 09:12 Oxygen Delivery Method Room Air 09/01/24 09:12 Assessment & Plan Assessment & Plan (1) Spondylosis of lumbar region without myelopathy or radiculopathy: Code(s): M47.816 - Spondylosis without myelopathy or radiculopathy, lumbar region Category: Medical Plan Diagnostic left medial branch block L3, L4, dorsal ramus L5. Informed consent was thoroughly explained to the patient before the procedure.? The patient came to the operating room.?She was positioned prone on operating table with a pillow under her abdomen.? Time-out was performed delineating correct site and side of the procedure, nature of the injection, name and date of of the patient. The lower back and upper buttocks of the patient was prepped with ChloraPrep and draped with sterile utility towels.? C-arm was brought over the operating field and the point of interest were delineated as confluence of the superior articular process of L4 vertebra and L5 vertebra on the left with corresponding transverse process on the left, as well as confluence of the superior articular process of S1 on the left with sacral ala on the left. The point of interest projection to the skin was injected with small amount of mixture of lidocaine 2% and ropivacaine 0.5%. After that 22 gauge 3-1/2 inch needle was driven to point of interest in tunnel vision fashion. When needle gently contacted the bone injection of the contrast was performed delineating no intravascular and no intrathecal spread of the contrast. After that injection of the small amount of ropivacaine 0.5% less than 1 cc into each target site was performed. Upon completion of the injections the needle was removed sterile Band-Aids were applied. The patient tolerated procedure well. She was given a pain diary to complete after the procedure. Orders: Orders FL guidance in treatment room Today M47.816 - Spondylosis without myelopathy or radiculopathy, lumbar region Coding Level of Care Code Procedure Only Diagnoses Spondylosis of lumbar region without myelopathy or radiculopathy M47.816
--- OUTSIDE RECORDS SUMMARY | 2024-09-01 08:16 | XMS_ITS | Clinical Summary ---
Author Organization [facility] Address [address] [place] [address] Care Team Providers Care Auto Body Repair Estimator Name Role Phone Braulio Merlos PA-C Primary [...] age to complete this topic Care Teams Auto Body Repair Estimator Relationship Specialty Start Date End Date Braulio Merlos, PASatishC PCP - General Medical Services 10/05/20
--- OUTSIDE RECORDS SUMMARY | 2024-09-01 08:16 | XMS_ITS | Clinical Summary ---
Author Organization [facility] Address [address] [place] [address] Phone Care Team Providers Care Requirements Engineer Name Role Phone Braulio Merlos Primary Care Provider [phone] Allergies Active Allergy Reactions Criticality Noted Date [...] 8:30 AM EST Office Visit Adult Medicine [address] [phone] Braulio Merlos PA Compression fracture of lumbar vertebra, unspecified lumbar vertebral level, sequela (Primary Dx); Mixed hyperlipidemia; Impaired fasting blood sugar; Fatty liver; Essential thrombocytosis (CMS/HCC); JUAN-2 gene mutation; Severe obesity (BMI 35.0-39.9) with comorbidity (CMS/HCC); Prediabetes; Neuropathy; Heartburn; Hiatal hernia 07/29/2024 10:00 AM EST Office Visit [facility] Hematology Oncology [address] [place] [phone] Tequila Mota MD Essential thrombocytosis (CMS/HCC) (Primary Dx); JUAN-2 gene mutation 07/16/2024 Telephone Adult Medicine [address] [phone] Braulio Merlos PA Referral 07/13/2024 Telephone Adult Medicine [address] [phone] Braulio Merlos PA Medication Problem 06/30/2024 8:45 AM EST Office Visit Adult Medicine [address] [phone] Rodrick Donis NP Acute cystitis without hematuria [...] 8:45 AM EDT Office Visit Adult Medicine [facility] [address] [place] [phone] Braulio Merlos PA [address] [place] [address] 04/28/2025 10:00 AM EST Office Visit [facility] Hematology Oncology [address] [place] [phone] Tequila Mota MD [address] [place] [address] Health Maintenance Due Date Last Done Comments [...] LAB HEMETOLOGY METHOD 07/24/2024 2:01 PM EST [facility] LAB Lymphocytes % 19.0 % LAB HEMETOLOGY METHOD 07/24/2024 2:01 PM [facility] LAB Reactive Lymphocyte 18.00 % LAB HEMETOLOGY METHOD 07/24/2024 2:01 PM [facility] LAB Monocytes % 5.0 % LAB HEMETOLOGY METHOD 07/24/2024 2:01 PM [facility] LAB Eosinophils % 4.0 % LAB HEMETOLOGY METHOD 07/24/2024 2:01 PM [facility] LAB Basophils % 1.0 % LAB HEMETOLOGY METHOD 07/24/2024 2:01 PM [facility] LAB Myelocytes % 1.0(H) % LAB HEMETOLOGY METHOD 07/24/2024 2:01 PM [facility] LAB Neutrophils Absolute Manual 3.71 1.50 - 7.00 K/mcL LAB HEMETOLOGY METHOD 07/24/2024 2:01 PM [facility] LAB Lymphocytes Absolute 1.33 1.00 - 5.00 K/mcL LAB HEMETOLOGY METHOD 07/24/2024 2:01 PM [facility] LAB Reactive Lymph Abs Manual 1.26(H) 0.00 - 0.00 lym LAB HEMETOLOGY METHOD 07/24/2024 2:01 PM [facility] LAB Monocytes Absolute Manual 0.35 0.20 - 1.00 K/mcL LAB HEMETOLOGY METHOD 07/24/2024 2:01 PM [facility] LAB Eosinophils Absolute Manual 0.28 0.00 - 0.50 K/mcL LAB HEMETOLOGY METHOD 07/24/2024 2:01 PM [facility] LAB Basophils Absolute Manual 0.07 0.00 - 0.20 K/mcL LAB HEMETOLOGY METHOD 07/24/2024 2:01 PM [facility] LAB Myelocytes Absolute Manual 0.07(H) 0.00 - 0.00 K/mcL LAB HEMETOLOGY METHOD 07/24/2024 2:01 PM [facility] LAB Rbc Morphology Consistent with indices Consistent with indices, Normal for [place] LAB HEMETOLOGY METHOD 07/24/2024 2:01 PM [facility] LAB Platelet Morphology - WAM See Note(A) Normal LAB HEMETOLOGY METHOD 07/24/2024 2:01 PM [facility] LAB Comment:PLT: Normal Blood Venous blood specimen / Unknown Venipuncture / Unknown 07/24/2024 12:30 PM EST 07/24/2024 1:16 PM EST us Tequila Mota MD LAB BLOOD ORDERABLES Final R esult [facility] [address] [place] [address], * (ABNORMAL) CBC auto differential (07/24/2024 12:30 PM EST) WBC 7.0 4.8 - 10.8 K/mcL LAB HEMETOLOGY METHOD 07/24/2024 2:01 PM [facility] RBC 4.10 3.80 - 4.80 M/mcL LAB HEMETOLOGY METHOD 07/24/2024 2:01 PM [facility] LAB Hemoglobin 12.9 11.5 - 16.0 g/dL LAB HEMETOLOGY METHOD 07/24/2024 2:01 PM [facility] LAB Hematocrit 40.0 35.0 - 47.0 % LAB HEMETOLOGY METHOD 07/24/2024 2:01 PM [facility] LAB MCV 97.3 79.0 - 98.0 FL LAB HEMETOLOGY METHOD 07/24/2024 2:01 PM [facility] LAB MCH 31.4 27.0 - 32.0 pcg LAB HEMETOLOGY METHOD 07/24/2024 2:01 PM [facility] LAB MCHC 32.3 32.0 - 37.0 g/dL LAB HEMETOLOGY METHOD 07/24/2024 2:01 PM EST [facility] RDW 13.7 11.0 - 15.0 % LAB HEMETOLOGY METHOD 07/24/2024 2:01 PM [facility] LAB Platelets 891(H) 130 - 400 K/mcL LAB HEMETOLOGY METHOD 07/24/2024 2:01 PM [facility] LAB MPV 9.5 7.0 - 11.0 FL LAB HEMETOLOGY METHOD 07/24/2024 2:01 PM EST [facility] LAB NRBC 0.0 <1.0 % LAB HEMETOLOGY METHOD 07/24/2024 2:01 PM [facility] LAB NRBC Absolute 0.00 <0.10 K/mcL LAB HEMETOLOGY METHOD 07/24/2024 2:01 PM [facility] LAB Blood Venous blood specimen / Unknown Venipuncture / Unknown 07/24/2024 12:30 PM EST 07/24/2024 1:16 PM EST us Tequila Mota MD LAB BLOOD ORDERABLES Final R esult [facility] [address] [place] [address], * (ABNORMAL) Comprehensive metabolic panel (07/24/2024 12:30 PM EST) Sodium 135 133 - 145 mmol/L LAB CHEMISTRY METHOD 07/24/2024 1:53 PM [facility] Potassium 4.5 3.5 - 5.5 mmol/L LAB CHEMISTRY METHOD 07/24/2024 1:53 PM [facility] LAB Chloride 102 96 - 110 mmol/L LAB CHEMISTRY METHOD 07/24/2024 1:53 PM [facility] CO2 24 21 - 32 mmol/L LAB CHEMISTRY METHOD 07/24/2024 1:53 PM [facility] Anion Gap 9 3 - 11 LAB CHEMISTRY METHOD 07/24/2024 1:53 PM [facility] LAB Glucose 154(H) 70 - 100 mg/dL LAB CHEMISTRY METHOD 07/24/2024 1:53 PM [facility] BUN 16 5 - 25 mg/dL LAB CHEMISTRY METHOD 07/24/2024 1:53 PM [facility] Creatinine 0.66 0.50 - 1.10 mg/dL LAB CHEMISTRY METHOD 07/24/2024 1:53 PM [facility] LAB eGFR 90 >=60 mL/min/1. 73m2 LAB CHEMISTRY METHOD 07/24/2024 1:53 PM [facility] LAB Comment:Calculation based on the??Chronic Kidney Disease Epidemiology Collaboration (CKD-EPI) equation refit??without adjustment for race. BUN/Creatinine Ratio 24.2 LAB CHEMISTRY METHOD 07/24/2024 1:53 PM [facility] Calcium 9.8 8.5 - 10.5 mg/dL LAB CHEMISTRY METHOD 07/24/2024 1:53 PM [facility] AST (SGOT) 23 10 - 42 unit/L LAB CHEMISTRY METHOD 07/24/2024 1:53 PM [facility] ALT (SGPT) 29 10 - 60 unit/L LAB CHEMISTRY METHOD 07/24/2024 1:53 PM [facility] Alkaline Phosphatase 62 42 - 121 unit/L LAB CHEMISTRY METHOD 07/24/2024 1:53 PM [facility] Total Protein 6.8 6.0 - 8.0 g/dL LAB CHEMISTRY METHOD 07/24/2024 1:53 PM [facility] Albumin 3.6 3.2 - 5.0 g/dL LAB CHEMISTRY METHOD 07/24/2024 1:53 PM [facility] Total Bilirubin 0.8 0.0 - 1.4 mg/dL LAB CHEMISTRY METHOD 07/24/2024 1:53 PM [facility] Blood Venous blood specimen / Unknown Venipuncture / Unknown 07/24/2024 12:30 PM EST 07/24/2024 1:17 PM EST Tequila Mota MD LAB BLOOD ORDERABLES Final R esult [facility] [address] [place] [address], [place] [phone] * Bruno urine culture tube (06/30/2024 10:17 AM EST) Pathologist [facility] Extra Tube Hold for add-ons. 06/30/2024 12:01 PM [facility] LAB Comment:Auto resulted. Urine Urine specimen obtained by clean catch procedure / Unknown Non-blood Collection / Unknown 06/30/2024 10:17 AM EST 06/30/2024 10:17 AM EST Rodrick Donis HAND FORMER HELPER LAB URINE ORDERABLES Final R esult Performing Organization Address City/[facility]/ZIP Co de Phone Number [facility] [address] [place] [address], [place] [phone] * (ABNORMAL) Urinalysis with reflex microscopic and culture (06/30/2024 10:16 AM EST) Pathologist [facility] Specific [place] Urine 1.012 1.003 - 1.030 LAB URINALYSIS - AUTOMATED METHOD 06/30/2024 12:00 PM [facility] pH, Urine 5.0 5.0 - 8.0 pH LAB URINALYSIS - AUTOMATED METHOD 06/30/2024 12:00 PM [facility] Leukocytes, Urine Large(A) Negative LAB URINALYSIS - AUTOMATED METHOD 06/30/2024 12:00 PM [facility] Nitrite, Urine Positive(A) Negative LAB URINALYSIS - AUTOMATED METHOD 06/30/2024 12:00 PM [facility] Protein, Urine Trace <=Trace mg/dL LAB URINALYSIS - AUTOMATED METHOD 06/30/2024 12:00 PM [facility] Glucose, Urine Negative Negative mg/dL LAB URINALYSIS - AUTOMATED METHOD 06/30/2024 12:00 PM [facility] Ketones, Urine Negative Negative mg/dL LAB URINALYSIS - AUTOMATED METHOD 06/30/2024 12:00 PM [facility] Urobilinogen , Urine 1.0 0.2 - 1.0 mg/dL LAB URINALYSIS - AUTOMATED METHOD 06/30/2024 12:00 PM [facility] Bilirubin, Urine Small(A) Negative LAB URINALYSIS - AUTOMATED METHOD 06/30/2024 12:00 PM [facility] Blood, Urine Negative Negative LAB URINALYSIS - AUTOMATED METHOD 06/30/2024 12:00 PM [facility] RBC, Urine 7.6(H) 0 - 4 /HPF LAB URINALYSIS - AUTOMATED METHOD 06/30/2024 12:00 PM [facility] WBC, Urine 13.2(H) 0 - 4 /HPF LAB URINALYSIS - AUTOMATED METHOD 06/30/2024 12:00 PM [facility] Squamous Epithelial, Urine 32 0 - 60 /LPF LAB URINALYSIS - AUTOMATED METHOD 06/30/2024 12:00 PM [facility] Bacteria, Urine Many(A) Negative /HPF LAB URINALYSIS - AUTOMATED METHOD 06/30/2024 12:00 PM [facility] Hyaline Casts, Urine 2.0 0 - 3 /LPF LAB URINALYSIS - AUTOMATED METHOD 06/30/2024 12:00 PM [facility] Urine Urine specimen obtained by clean catch procedure / Unknown Non-blood Collection / Unknown 06/30/2024 10:16 AM EST 06/30/2024 10:16 AM EST Rodrick Donis HAND FORMER HELPER LAB URINE ORDERABLES Final R esult Performing Organization Address City/[facility]/ZIP Co de Phone Number [facility] [address] [place] [address], [place] [phone] * (ABNORMAL) Culture urine (06/30/2024 10:16 AM [...] Trimethoprim/Sulfamethoxazole [place] <=20 ug/ml: Susceptible Rodrick Donis HAND FORMER HELPER LAB MICROBIOLOGY - GENERAL O RDERABLES Final Result [facility] [address] [place] [address], [place] [phone] * (ABNORMAL) Basic metabolic panel (06/30/2024 10:16 AM EST) Sodium 136 133 - 145 mmol/L LAB CHEMISTRY METHOD 06/30/2024 12:49 PM [facility] Potassium 4.5 3.5 - 5.5 mmol/L LAB CHEMISTRY METHOD 06/30/2024 12:49 PM [facility] Chloride 103 96 - 110 mmol/L LAB CHEMISTRY METHOD 06/30/2024 12:49 PM [facility] CO2 27 21 - 32 mmol/L LAB CHEMISTRY METHOD 06/30/2024 12:49 PM [facility] Anion Gap 6 3 - 11 LAB CHEMISTRY METHOD 06/30/2024 12:49 PM [facility] Glucose 122(H) 70 - 100 mg/dL LAB CHEMISTRY METHOD 06/30/2024 12:49 PM [facility] BUN 18 5 - 25 mg/dL LAB CHEMISTRY METHOD 06/30/2024 12:49 PM [facility] Creatinine 0.70 0.50 - 1.10 mg/dL LAB CHEMISTRY METHOD 06/30/2024 12:49 PM [facility] eGFR 89 >=60 mL/min/1. 73m2 LAB CHEMISTRY METHOD 06/30/2024 12:49 PM [facility] Comment:Calculation based on the??Chronic Kidney Disease Epidemiology Collaboration (CKD-EPI) equation refit??without adjustment for race. BUN/Creatinine Ratio 25.7 LAB CHEMISTRY METHOD 06/30/2024 12:49 PM [facility] Calcium 9.7 8.5 - 10.5 mg/dL LAB CHEMISTRY METHOD 06/30/2024 12:49 PM [facility] Blood Venous blood specimen / Unknown Venipuncture / Unknown 06/30/2024 10:16 AM EST 06/30/2024 10:16 AM EST Rodrick Donis NP LAB BLOOD ORDERABLES Final R esult [facility] [address] [place] [address], * DXA BONE DENSITY STUDY 1+ SITS [...] evidence of osteoporosis. ??Clinical correlation suggested. The [facility] Department of Internal Medicine recommends using National [...] alternative screening schedule based on atul Bolanos., [facility] June 14, 2011 for patients with osteopenia [...] presumptiveevidence of osteoporosis. Clinical correlation suggested. The [facility] Department of Internal Medicine recommendsusing National Osteoporosis [...] Most Recently Relevant to Health Maintenance Insurance [facility] Care Teams Requirements Engineer Relationship Specialty Start Date End Date Braulio Merlos PA [address] [place] [address] PCP - General Internal Medicine 08/03/20
[2024-09-01 09:12] VITALS: BP 148/67; PULSE 69; RESP 16; O2SAT 97
== END 2024-09-01 08:58 | disposition home or self-care (01) ==
LOC: HO.PMCPRC 08:05
PROVIDERS: PCP Physician Assistant Medical; Visit Provider Anesthesiology
DX: M47.816 Spondylosis without myelopathy or radiculopathy, lumbar region (principal)
CPT/HCPCS: 64493; 64494

== ENCOUNTER 2024-09-03 09:55 | Outpatient (AMB) | payer BC, SELFPAY ==
[2024-09-03 09:56] VITALS: BP 156/66; PULSE 80; O2SAT 96; BMI 32.9
--- NOTE | 2024-09-03 09:56 | MHC.OFFVIS ---
Vital Signs 09/03/24 09:56 Height 5 ft 2 in Weight 180 lb BMI 32.9 BP 156/66 H Blood Pressure Location Rt brachial Position Sitting Pulse 80 Pulse Source Pulse Oximeter Pulse Oximetry (%) 96 Oxygen Delivery Method Room Air Intake Visit Reasons: LEFT DIAGNOSTIC L2, L3, L4, DRL5 MBB Allergies latex Allergy (Mild, Verified 09/03/24 09:56) Unknown HPI Comments Details: Fina is back in my office after diagnostic medial branch block L2, L3, L4, dorsal ramus L5 on the left side. She denies any help from the injection. Therefore I can conclude that her pain is not related to the facet joints on the lumbar spine. We discussed possibility of treatment of her condition with spinal cord stimulator [employer]. She needs to go for psychological evaluation. The [employer] brochure was given to the patient. Spinal cord stimulation brochure from [employer] also was provided to the patient. As soon as she will past psychological evaluation I will schedule her for the trial. I also requested just in case to bring me the MRI from [facility] to evaluate potential Modic type changes in her lumbar spine. Prior: complains on pain in the lower back more to the left with radiation into the left lower extremity to the level of the knee and filling of the sensation of the he below the level of the knee. She reports that the pain is most severe when she is standing she reports pain aggravation when she attempts to sit but denies pain with prolonged sitting. She reports flexing forward and flexing backwards equally aggravate her pain. She believes that her pain is related to compression fracture of L5 vertebra which she received in June. Dr. Lena Stringer performed kyphoplasty on the patient however kyphoplasty was not very helpful for her pain control. She had multiple diagnostic studies which were performed in [facility] and [facility]. Those studies are not available for me in full extent. The only thing which I was able to see is image of the 3 slides of the MRI patient received before her kyphoplasty. She did not have MRI after kyphoplasty. Her daughter show me on the phone copy of the report of her left hip x-ray demonstrated multiple changes including arthritis of the hip joint as well as spurs in the projection of greater trochanter. She went for physical therapy at [facility] and she reports that physical therapy made it worse and she was not able to do home exercise programs. She adamantly refuses to go for physical therapy. She was under care of Dr. Luna who performed ?cortisone injection ?on the patient twice. Dr. Luna performed this injections twice the nature of the injections are not known to the patient the anatomical targets are not known to the patient. Somehow she believes that they were disc injections. There is no reports available for me. Past medical history: The patient is suffering from osteoporosis. She is taking alendronate 70 mg q.week. she in the past had 2 compression fractures of L1 and L2 vertebra. Recently she fractured L5 and kyphoplasties were performed and all of them. She reports that she was diagnose with prediabetes and she controls it with the diet. She admits shortness of breath due to deconditioning. She reports fatty liver disease. She denies lung or heart problems. [facility] Surgical History (Updated 03/26/24 @ 09:34 by Glenis Hyde) H/O kyphoplasty Review of Systems Const All systems reviewed & are unremarkable except as noted in HPI and below ENT Reports Normal hearing present Neuro Reports Normal hearing present, Denies Abnormal speech present, Denies confusion and Denies Sensory deficit (Neuro) Psych Denies confusion Physical Exam Vital Signs: Last Vital Signs Pulse 80 09/03/24 09:56 BP 156/66 H 09/03/24 09:56 Pulse Ox 96 09/03/24 09:56 Oxygen Delivery Method Room Air 09/03/24 09:56 BMI result Body Mass Index 32.9 Const General: no acute distress; No confusion Nutritional Appearance: obese (Trivial obesity BMI is 33) Orientation/consciousness: patient oriented x3 and No confusion Eyes General: appearance normal, both eyes and all related structures Pupils: Equal, round and reactive pupils present EOM: EOMs intact bilaterally Neck Neck: Yes full ROM Chest Chest palpation & inspection: normal inspection of the chest Resp Effort & Inspection: normal respiratory effort, able to speak in complete sentences, normal respiratory pattern, no audible wheezes and no cough Cardio Jugular venous distension: no JVD GI Inspection: Yes normal to inspection Back/Spine/Pelvis Other: Able to stand on bilateral tiptoes in bilateral heels demonstrating normal strength of bilateral lower extremities. Flexing backwards aggravates pain slightly more than flexing forward. Juan Pablo test is positive on the left. Pelvic compression test is positive on the left. Pelvic distraction test is positive on the left. Loading test is positive on the left. Lateral and medial rotation of the hip bilaterally do not cause discomfort in the groin. SLR is negative bilaterally. Dorsiflexion at maximal SLR bilateral does not cause aggravation of the pain in the back. Neuro General: patient oriented x3, gait normal and No confusion Cranial nerves: Yes CN's II-XII intact bilaterally, Yes Equal, round and reactive pupils present, Yes Normal hearing present and Yes Ability to bilaterally elevate shoulders present Speech: No Abnormal speech present Gait exam (Neuro): Normal gait present Motor exam (neuro): 5/5 motor strength present throughout Sensory Exam: No Sensory deficit (Neuro) Extrem General: No pedal edema Psych Speech and movement: Normal speech and movement present Affect: normal affect Attitude: cooperative Thought process: Normal thought process present Thought content: Normal thought content present Insight: Good insight present (Psych) Judgement: Good judgement present (Psych) Assessment & Plan Assessment & Plan (1) Sacroiliitis: Code(s): M46.1 - Sacroiliitis, not elsewhere classified Category: Medical (2) Sacroiliac joint dysfunction of left side: Code(s): M53.3 - Sacrococcygeal disorders, not elsewhere classified Category: Medical (3) Spondylosis of lumbar region without myelopathy or radiculopathy: Code(s): M47.816 - Spondylosis without myelopathy or radiculopathy, lumbar region Category: Medical (4) Osteoporosis: Code(s): M81.0 - Age-related osteoporosis without current pathological fracture Category: Medical (5) History of vertebral compression fracture: Code(s): Z87.81 - Personal history of (healed) traumatic fracture Category: Medical Plan Unfortunately the medial branch block on the left which I performed few days ago did not help at all the patient. She only reported aggravation of the pain. Spinal cord stimulator [employer] was discussed. Patient is willing to try the procedure. She needs to go for psychological evaluation. The psychological evaluation was explained to the patient. [facility] brochure was given to the patient. The patient will contact the psychologist at [facility] and she will schedule appointment with me after she will pass the psychological tests. After that we will schedule her for [employer] trial. She also has on images significant hip arthritis. Because of her significant osteoporosis the treatment of hip arthritis with steroid injections could exacerbate her osteoporosis. Therefore for now I would not consider this procedures however if trial of [employer] scientific spinal cord stimulator will not be successful to alleviate her pain this would be the last resort for me to try the pain relief for this patient. She also going to bring me the MRI disc from [facility] and I will evaluate possible Modic type changes in her MRI Patient Instructions: I here by testify that I spent 30 minutes in conversation with this patient as well as planning her care and organizing this note. Coding Level of Care Code Est Pt Level 4 (96338) Diagnoses Sacroiliitis M46.1 Sacroiliac joint dysfunction of left side M53.3 Spondylosis of lumbar region without myelopathy or radiculopathy M47.816 Osteoporosis M81.0 History of vertebral compression fracture Z87.81
--- OUTSIDE RECORDS SUMMARY | 2024-09-03 11:23 | XMS_ITS | Patient Health Record ---
Author Organization [facility] Gina [place] Address [address] [address] Care Team Providers Care Assistant Professor Of Life Sciences Name Role Phone Braulio Madrid Primary Care Provider Unav ailable Rik Trivedi Unavailable [phone] Allergies Allergen (clinical drug ingredient) Drug/Non Drug [...] Problem Status W/U Status Risk Notes Problem [id number] Leg length discrepancy (M21.70) Active confirmed Plan Of Treatment Pending Test Test Name Order Date X ray : Foot, left 3V 06/20/2021 Insurance Providers Payer Name Payer Address Payer Phone Subscriber Number Group Number Insured Name Patient Relationship to Insured Coverage Start Date Coverage End Date Medicare [employer] [address] [place] [phone] [id number] Fina Lin Self - patient is the insured [facility] [address] [place] [address] [phone] [id number] Fina Lin Self - patient is the insured Medical (General) History Medical History History ICD Code Arthritis Back,Hip,and Knee pain CAD (Cholesterol) Chicken pox Measles Numbness Osteoporosis Sciatica Surgical History Surgery Date(Month/Year)
--- OUTSIDE RECORDS SUMMARY | 2024-09-03 11:24 | XMS_ITS | Clinical Summary ---
Author Organization [facility] Address [address] [place] [address] Phone Care Team Providers Care Biology Instructor Name Role Phone Braulio Merlos Primary Care Provider [phone] Allergies Active Allergy Reactions Criticality Noted Date [...] 04/03/2024 Passage of loose stools 04/03/2024 Sacroiliitis (CMS/HCC V24) 12/06/2023 Overview (04/03/2024): Last Assessment & Plan: [...] this would help her. 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 9) with comorbidity ([facility] V24, [facility] V28) 01/22/2012 Heartburn 10/03/2006 Overview (04/03/2024): Normal EGD on PPI rx 09/24/2011. 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 Overview (04/03/2024): IMO update Disorder of bone and cartilage 06/07/2005 Overview (04/03/2024): [facility] update Lumbago 06/07/2005 Encounters Date Type Department Care Team Description 07/30/2024 8:30 AM EST Office Visit Adult Medicine [address] [phone] Braulio Merlos PA Compression fracture of lumbar vertebra, unspecified lumbar vertebral level, sequela (Primary Dx); Mixed hyperlipidemia; Impaired fasting blood sugar; Fatty liver; Essential thrombocytosis (CMS/HCC V24, CMS/HCC V28); JUAN-2 gene mutation; Severe obesity (BMI 35.0-39.9) with comorbidity (CMS/HCC V24, CMS/HCC V28); Prediabetes; Neuropathy; Heartburn; Hiatal hernia 07/29/2024 10:00 AM EST Office Visit [facility] Hematology Oncology [address] [place] [phone] Tequila Mota MD Essential thrombocytosis (CMS/HCC V24, CMS/HCC V28) (Primary Dx); JUAN-2 gene mutation 07/16/2024 Telephone Adult Medicine [address] [phone] Braulio Merlos PA Referral 07/13/2024 Telephone Adult Medicine [address] [phone] Braulio Merlos PA Medication Problem 06/30/2024 8:45 AM EST Office Visit Adult Medicine [address] [phone] Rodrick Donis NP Acute cystitis without hematuria [...] History Medical History Date Comments Essential thrombocytosis (CM S/HCC V24, CMS/HCC V28) DX:Essential thrombocytosis (HCC);COMMENT:JUAN 2 mutation pos followed by [...] 8:45 AM EDT Office Visit Adult Medicine [address] [phone] Braulio Merlos PA [address] [place] [address] 04/28/2025 10:00 AM EST Office Visit [facility] Hematology Oncology [address] [place] [phone] Tequila Mota MD [address] [place] [address] Health Maintenance Due Date Last Done Comments [...] Routine 07/24/2024 12:30 PM EST Thrombocythemia, essential (CMS/HCC V24, CMS/HCC V28) CBC WITH AUTO DIFFERENTIAL Routine 07/24/2024 12:30 PM EST Thrombocythemia, essential (CMS/HCC V24, CMS/HCC V28) CBC AND DIFFERENTIAL Routine 07/24/2024 12:30 PM EST Thrombocythemia, essential (CMS/HCC V24, CMS/HCC V28) COMPREHENSIVE METABOLIC PANEL Routine 07/24/2024 12:30 PM EST Thrombocythemia, essential (CMS/HCC V24, CMS/HCC V28) BRUNO URINE CULTURE TUBE Routine 06/30/2024 10:17 [...] liver, not elsewhere classified Essential (hemorrhagic) thrombocythemia (CMS/HCC V24, CMS/HCC V28) from Last 3 Months or Most Recently Relevant to Health Maintenance Results * Miscellaneous reference lab test (07/29/2024) us Provider Onbase MD LAB BLOOD ORDERABLES Final Re sult * (ABNORMAL) Manual differential (07/24/2024 12:30 PM EST) Neutrophils % 53.0 % LAB HEMETOLOGY METHOD 07/24/2024 2:01 PM [facility] Lymphocytes % 19.0 % LAB HEMETOLOGY METHOD 07/24/2024 2:01 PM [facility] Reactive Lymphocyte 18.00 % LAB HEMETOLOGY METHOD 07/24/2024 2:01 PM [facility] Monocytes % 5.0 % LAB HEMETOLOGY METHOD 07/24/2024 2:01 PM [facility] Eosinophils % 4.0 % LAB HEMETOLOGY METHOD 07/24/2024 2:01 PM [facility] Basophils % 1.0 % LAB HEMETOLOGY METHOD 07/24/2024 2:01 PM [facility] Myelocytes % 1.0(H) % LAB HEMETOLOGY METHOD 07/24/2024 2:01 PM [facility] Neutrophils Absolute Manual 3.71 1.50 - 7.00 K/mcL LAB HEMETOLOGY METHOD 07/24/2024 2:01 PM [facility] Lymphocytes Absolute 1.33 1.00 - 5.00 K/mcL LAB HEMETOLOGY METHOD 07/24/2024 2:01 PM [facility] Reactive Lymph Abs Manual 1.26(H) 0.00 - 0.00 lym LAB HEMETOLOGY METHOD 07/24/2024 2:01 PM [facility] Monocytes Absolute Manual 0.35 0.20 - 1.00 K/mcL LAB HEMETOLOGY METHOD 07/24/2024 2:01 PM [facility] Eosinophils Absolute Manual 0.28 0.00 - 0.50 K/mcL LAB HEMETOLOGY METHOD 07/24/2024 2:01 PM EST [facility] Basophils Absolute Manual 0.07 0.00 - 0.20 K/[facility] LAB HEMETOLOGY METHOD 07/24/2024 2:01 PM [facility] Myelocytes Absolute Manual 0.07(H) 0.00 - 0.00 K/[facility] LAB HEMETOLOGY METHOD 07/24/2024 2:01 PM EST [facility] Rbc Morphology Consistent with indices Consistent with indices, Normal for [place] LAB HEMETOLOGY METHOD 07/24/2024 2:01 PM EST [facility] Platelet Morphology - WAM See Note(A) Normal LAB HEMETOLOGY METHOD 07/24/2024 2:01 PM EST [facility] Comment:PLT: Normal Blood Venous blood specimen / Unknown Venipuncture / Unknown 07/24/2024 12:30 PM EST 07/24/2024 1:16 PM EST us Tequila Mota MD LAB BLOOD ORDERABLES Final R esult [facility] [address] [place] [address], * (ABNORMAL) CBC auto differential (07/24/2024 12:30 PM EST) WBC 7.0 4.8 - 10.8 K/[facility] LAB HEMETOLOGY METHOD 07/24/2024 2:01 PM EST [facility] RBC 4.10 3.80 - 4.80 M/mcL LAB HEMETOLOGY METHOD 07/24/2024 2:01 PM [facility] Hemoglobin 12.9 11.5 - 16.0 g/dL LAB HEMETOLOGY METHOD 07/24/2024 2:01 PM EST [facility] Hematocrit 40.0 35.0 - 47.0 % LAB HEMETOLOGY METHOD 07/24/2024 2:01 PM EST [facility] MCV 97.3 79.0 - 98.0 FL LAB HEMETOLOGY METHOD 07/24/2024 2:01 PM EST [facility] MCH 31.4 27.0 - 32.0 pcg LAB HEMETOLOGY METHOD 07/24/2024 2:01 PM [facility] MCHC 32.3 32.0 - 37.0 g/dL LAB HEMETOLOGY METHOD 07/24/2024 2:01 PM EST [facility] RDW 13.7 11.0 - 15.0 % LAB HEMETOLOGY METHOD 07/24/2024 2:01 PM [facility] Platelets 891(H) 130 - 400 K/mcL LAB HEMETOLOGY METHOD 07/24/2024 2:01 PM [facility] MPV 9.5 7.0 - 11.0 FL LAB HEMETOLOGY METHOD 07/24/2024 2:01 PM EST [facility] NRBC 0.0 <1.0 % LAB HEMETOLOGY METHOD 07/24/2024 2:01 PM [facility] NRBC Absolute 0.00 <0.10 K/mcL LAB HEMETOLOGY METHOD 07/24/2024 2:01 PM [facility] Blood Venous blood specimen / Unknown Venipuncture / Unknown 07/24/2024 12:30 PM EST 07/24/2024 1:16 PM EST us Tequila Mota MD LAB BLOOD ORDERABLES Final R esult [facility] [address] [place] [address], * (ABNORMAL) Comprehensive metabolic panel (07/24/2024 12:30 PM EST) Sodium 135 133 - 145 mmol/L LAB CHEMISTRY METHOD 07/24/2024 1:53 PM [facility] Potassium 4.5 3.5 - 5.5 mmol/L LAB CHEMISTRY METHOD 07/24/2024 1:53 PM [facility] Chloride 102 96 - 110 mmol/L LAB CHEMISTRY METHOD 07/24/2024 1:53 PM [facility] CO2 24 21 - 32 mmol/L LAB CHEMISTRY METHOD 07/24/2024 1:53 PM [facility] Anion Gap 9 3 - 11 LAB CHEMISTRY METHOD 07/24/2024 1:53 PM [facility] Glucose 154(H) 70 - 100 mg/dL LAB CHEMISTRY METHOD 07/24/2024 1:53 PM [facility] BUN 16 5 - 25 mg/dL LAB CHEMISTRY METHOD 07/24/2024 1:53 PM [facility] Creatinine 0.66 0.50 - 1.10 mg/dL LAB CHEMISTRY METHOD 07/24/2024 1:53 PM [facility] eGFR 90 >=60 mL/min/1. 73m2 LAB CHEMISTRY METHOD 07/24/2024 1:53 PM [facility] Comment:Calculation based on the??Chronic Kidney Disease Epidemiology Collaboration (CKD-EPI) equation refit??without adjustment for race. BUN/Creatinine Ratio 24.2 LAB CHEMISTRY METHOD 07/24/2024 1:53 PM [facility] Calcium 9.8 8.5 - 10.5 mg/dL LAB CHEMISTRY METHOD 07/24/2024 1:53 PM [facility] AST (SGOT) 23 10 - 42 unit/L LAB CHEMISTRY METHOD 07/24/2024 1:53 PM [facility] ALT (SGPT) 29 10 - 60 unit/L LAB CHEMISTRY METHOD 07/24/2024 1:53 PM [facility] Alkaline Phosphatase 62 42 - 121 unit/L LAB CHEMISTRY METHOD 07/24/2024 1:53 PM [facility] Total Protein 6.8 6.0 - 8.0 g/dL LAB CHEMISTRY METHOD 07/24/2024 1:53 PM [facility] Albumin 3.6 3.2 - 5.0 g/dL LAB CHEMISTRY METHOD 07/24/2024 1:53 PM [facility] Total Bilirubin 0.8 0.0 - 1.4 mg/dL LAB CHEMISTRY METHOD 07/24/2024 1:53 PM [facility] Blood Venous blood specimen / Unknown Venipuncture / Unknown 07/24/2024 12:30 PM EST 07/24/2024 1:17 PM EST Tequila Mota MD LAB BLOOD ORDERABLES Final R esult Performing Organization Address City/[facility]/ZIP Co de Phone Number [facility] [address] [place] [address], [place] [phone] * Bruno urine culture tube (06/30/2024 10:17 AM EST) Extra Tube Hold for add-ons. 06/30/2024 12:01 PM [facility] Comment:Auto resulted. Urine Urine specimen obtained by clean catch procedure / Unknown Non-blood Collection / Unknown 06/30/2024 10:17 AM EST 06/30/2024 10:17 AM EST Rodrick Donis NP LAB URINE ORDERABLES Final R esult [facility] [address] [place] [address], [place] [phone] * (ABNORMAL) Urinalysis with reflex microscopic and culture (06/30/2024 10:16 AM EST) Specific [place] Urine 1.012 1.003 - 1.030 LAB URINALYSIS - AUTOMATED METHOD 06/30/2024 12:00 PM [facility] pH, Urine 5.0 5.0 - 8.0 pH LAB URINALYSIS - AUTOMATED METHOD 06/30/2024 12:00 PM [facility] Leukocytes, Urine Large(A) Negative LAB URINALYSIS - AUTOMATED METHOD 06/30/2024 12:00 PM [facility] Nitrite, Urine Positive(A) Negative LAB URINALYSIS - AUTOMATED METHOD 06/30/2024 12:00 PM [facility] Protein, Urine Trace <=Trace mg/dL LAB URINALYSIS - AUTOMATED METHOD 06/30/2024 12:00 PM [facility] Glucose, Urine Negative Negative mg/dL LAB URINALYSIS - AUTOMATED METHOD 06/30/2024 12:00 PM [facility] Ketones, Urine Negative Negative mg/dL LAB URINALYSIS - AUTOMATED METHOD 06/30/2024 12:00 PM [facility] Urobilinogen , Urine 1.0 0.2 - 1.0 mg/dL LAB URINALYSIS - AUTOMATED METHOD 06/30/2024 12:00 PM [facility] Bilirubin, Urine Small(A) Negative LAB URINALYSIS - AUTOMATED METHOD 06/30/2024 12:00 PM [facility] Blood, Urine Negative Negative LAB URINALYSIS - AUTOMATED METHOD 06/30/2024 12:00 PM [facility] RBC, Urine 7.6(H) 0 - 4 /HPF LAB URINALYSIS - AUTOMATED METHOD 06/30/2024 12:00 PM [facility] WBC, Urine 13.2(H) 0 - 4 /HPF LAB URINALYSIS - AUTOMATED METHOD 06/30/2024 12:00 PM [facility] Squamous Epithelial, Urine 32 0 - 60 /LPF LAB URINALYSIS - AUTOMATED METHOD 06/30/2024 12:00 PM [facility] Bacteria, Urine Many(A) Negative /HPF LAB URINALYSIS - AUTOMATED METHOD 06/30/2024 12:00 PM EST [facility] Hyaline Casts, Urine 2.0 0 - 3 /LPF LAB URINALYSIS - AUTOMATED METHOD 06/30/2024 12:00 PM EST [facility] Urine Urine specimen obtained by clean catch procedure / Unknown Non-blood Collection / Unknown 06/30/2024 10:16 AM EST 06/30/2024 10:16 AM EST us Rodrick Donis AIX ADMINISTRATOR LAB URINE ORDERABLES Final R esult [facility] [address] [place] [address], * (ABNORMAL) Culture urine (06/30/2024 10:16 AM EST) Culture, Urine 50,000-100,000 CFU/mL Escherichia coli(A) [place] 07/02/2024 10:20 AM [facility] Urine Urine specimen obtained by [...] Trimethoprim/Sulfamethoxazole [place] <=20 ug/ml: Susceptible Rodrick Donis NP LAB MICROBIOLOGY - GENERAL O RDERABLES Final Result [facility] [address] [place] [address], * (ABNORMAL) Basic metabolic panel (06/30/2024 10:16 AM EST) Sodium 136 133 - 145 mmol/L LAB CHEMISTRY METHOD 06/30/2024 12:49 PM [facility] Potassium 4.5 3.5 - 5.5 mmol/L LAB CHEMISTRY METHOD 06/30/2024 12:49 PM [facility] Chloride 103 96 - 110 mmol/L LAB CHEMISTRY METHOD 06/30/2024 12:49 PM [facility] CO2 27 21 - 32 mmol/L LAB CHEMISTRY METHOD 06/30/2024 12:49 PM [facility] Anion Gap 6 3 - 11 LAB CHEMISTRY METHOD 06/30/2024 12:49 PM [facility] Glucose 122(H) 70 - 100 mg/dL LAB CHEMISTRY METHOD 06/30/2024 12:49 PM [facility] BUN 18 5 - 25 mg/dL LAB CHEMISTRY METHOD 06/30/2024 12:49 PM [facility] Creatinine 0.70 0.50 - 1.10 mg/dL LAB CHEMISTRY METHOD 06/30/2024 12:49 PM [facility] eGFR 89 >=60 mL/min/1. 73m2 LAB CHEMISTRY METHOD 06/30/2024 12:49 PM [facility] Comment:Calculation based on the??Chronic Kidney Disease Epidemiology Collaboration (CKD-EPI) equation refit??without adjustment for race. BUN/Creatinine Ratio 25.7 LAB CHEMISTRY METHOD 06/30/2024 12:49 PM EST [facility] Calcium 9.7 8.5 - 10.5 mg/dL LAB CHEMISTRY METHOD 06/30/2024 12:49 PM EST [facility] Blood Venous blood specimen / Unknown Venipuncture / Unknown 06/30/2024 10:16 AM EST 06/30/2024 10:16 AM EST us Rodrick Donis NP LAB BLOOD ORDERABLES Final R esult [facility] [address] [place] [address], * DXA BONE DENSITY STUDY 1+ SITS [...] evidence of osteoporosis. ??Clinical correlation suggested. [facility] Department of Internal Medicine recommends [...] alternative screening schedule based on atul Bolanos., [facility] June 14, 2011 for patients with osteopenia [...] presumptiveevidence of osteoporosis. Clinical correlation suggested. [facility] Department of Internal Medicine recommendsusing [...] alternative screening schedule based on atul Bolanos., [place] for patients with osteopenia (based on hip BMD T-score) is as follows: * advanced osteopenia (T scores -2.00 to -2.49), BMD testing every year * moderate osteopenia (T scores -1.50 to -1.99), BMD testing every 5years mild osteopenia or normal BMD (T scores -1.50 and higher), BMD testingevery 15 years Braulio NAYAK Annemarie DXA PROCEDURES Final Result from Last 3 Months or Most Recently Relevant to Health Maintenance Insurance [facility] Care Teams Biology Instructor Relationship Specialty Start Date End Date Braulio Merlos PA [address] [place] [address] PCP - General Internal Medicine 08/03/20
--- OUTSIDE RECORDS SUMMARY | 2024-09-03 11:24 | XMS_ITS | Clinical Summary ---
Author Organization [facility] Address [address] [place] [address] Care Team Providers Care Laundry Equipment Operator Name Role Phone Braulio Merlos PA-C [...] age to complete this topic Care Teams Laundry Equipment Operator Relationship Specialty Start Date End Date Braulio Merlos, PASatishC PCP - General Medical Services 10/05/20
== END 2024-09-03 10:24 | disposition home or self-care (01) ==
LOC: HO.PMC 09:55
PROVIDERS: PCP Physician Assistant Medical; Visit Provider Anesthesiology
DX: M46.1 Sacroiliitis, not elsewhere classified (principal); M53.3 Sacrococcygeal disorders, not elsewhere classified; M47.816 Spondylosis without myelopathy or radiculopathy, lumbar region; M81.0 Age-related osteoporosis without current pathological fracture; Z87.81 Personal history of (healed) traumatic fracture
CPT/HCPCS: 99214

== ENCOUNTER 2024-09-30 09:58 | Outpatient (REF) | payer BC, SELFPAY ==
--- NOTE | ~2024-09-30 | XR_ITS ---
EXAMINATION: XR HIP 2 OR MORE VIEWS LEFT HISTORY: M16.12 - Unilateral primary osteoarthritis, left hip COMPARISON: There are no prior studies for comparison. FINDINGS: Two views of the left hip are submitted. Osseous mineralization is normal. There is no fracture or dislocation. There is mild to moderate joint space narrowing. The soft tissues are unremarkable. XR/XR hip LT min 2V IMPRESSION: Mild to moderate joint space narrowing. Electronically signed by: James Lance MD 09/30/2024 11:43 AM EDT
--- OUTSIDE RECORDS SUMMARY | 2024-09-30 12:12 | XMS_ITS | Clinical Summary ---
Author Organization [facility] Address [address] [place] [address] Phone Care Team Providers Care Brush Polisher Name Role Phone Braulio Merlos Primary Care Provider [phone] Allergies Active Allergy Reactions Criticality Noted Date Comments Hydrocodone-Acetaminophen 12/09/2019 Latex 12/09/2019 Oxycodone Swelling 03/10/2020 Oxycodone-Acetaminophen Numbness High 06/08/2005 Medications aspirin 81 mg EC tablet Take 1 tablet (81 mg total) by mouth 1 (one) time each day. Active calcium carbonate-justo min D3 600 mg-5 mcg (200 unit) per tablet Take by mouth. Active hydrocortisone 2.5 % cream Apply topically 2 (two) times a day. Active loratadine (CLARITIN) 10 mg tablet Take 1 tablet (10 mg total) by mouth 1 (one) time each day. Active multivitamin tablet Take by mouth. Active omeprazole (PriLOSEC) [address] capsule [...] week 36 capsule 1 08/27/19 25 Active alendronate (FOSAMAX) 70 mg tablet TAKE 1 TABLET BY MOUTH EVERY 7 DAYS 12 tablet 3 09/19/19 25 Active sertraline (ZOLOFT) 50 mg tablet Take 1 tablet (50 mg total) by mouth 1 (one) time each day. 30 each 5 09/22/19 25 025 Active atorvastatin (LIPITOR) 10 mg tablet TAKE 1 TABLET BY MOUTH EVERYDAY AT BEDTIME 90 tablet 1 09/25/19 25 Active atorvastatin (LIPITOR) 10 mg tablet Take 1 tablet (10 mg total) by mouth every evening. 025 Discontinued alendronate (FOSAMAX) 70 mg tablet TAKE 1 TABLET BY MOUTH EVERY 7 DAYS 12 tablet 1 03/31/20 24 025 Discontinued Active Problems Problem Noted Date Diagnosed Date Fatty liver 04/03/2024 Passage of loose stools 04/03/2024 Sacroiliitis (CMS/[facility] V24) 12/06/2023 Overview (04/03/2024): Last Assessment & [...] this would help her. 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 9) with comorbidity ([facility] V24, CMS/HCC V28) 01/22/2012 Heartburn 10/03/2006 Overview (04/03/2024): Normal EGD on PPI rx 09/24/2011. 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 Overview (04/03/2024): IMO update Disorder of bone and cartilage 06/07/2005 Overview (04/03/2024): IMO update Lumbago 06/07/2005 Encounters Date Type Department Care Team Description 09/21/2024 8:45 AM EDT Office Visit Adult [address] [phone] Braulio Merlos PA Anxiety and depression (Primary Dx); Encounter for screening mammogram for malignant neoplasm of breast; Urinary urgency; Urge incontinence; Essential thrombocytosis (CMS/HCC V24, CMS/HCC V28); Fatty liver; Heartburn; Mixed hyperlipidemia; Prediabetes; Neuropathy; Severe obesity (BMI 35.0-39.9) with comorbidity (CMS/HCC V24, CMS/HCC V28) 07/30/2024 8:30 AM EST Office Visit Adult [address] [phone] Braulio Merlos PA Compression fracture of lumbar vertebra, unspecified lumbar vertebral level, sequela (Primary Dx); Mixed hyperlipidemia; Impaired fasting blood sugar; Fatty liver; Essential thrombocytosis (CMS/HCC V24, CMS/HCC V28); JUAN-2 gene mutation; Severe obesity (BMI 35.0-39.9) with comorbidity (CMS/HCC V24, CMS/HCC V28); Prediabetes; Neuropathy; Heartburn; Hiatal hernia 07/29/2024 10:00 AM EST Office Visit [facility] Hematology Oncology [address] [place] [phone] Tequila Mota MD Essential thrombocytosis (CMS/HCC V24, CMS/HCC V28) (Primary Dx); JUAN-2 gene mutation 07/16/2024 Telephone Adult Medicine [id number] [place] [phone] Braulio Merlos PA Referral 07/13/2024 Telephone Adult Medicine [id number] [place] [phone] Braulio Merlos PA Medication Problem from Last 3 Months Immunizations Name Administration [...] drink = 0.6 oz pur e alcohol) Housing Instability Answer Date Recorde d Are you worried that in the next 2 months you may not have stable housing? No 09/21/2024 Food Access & Nutrition Answer Date Rec orded Do you have access to a vari ety of food including fruits and vegetables? Yes 09/21/2024 Health Literacy Answer Date Recorded How often do you need to hav e someone help you when you read instructions, pamphlets, or other written material from your doctor or pharmacy? Never 09/21/2024 Caregiver: How often do you need to have someone help you when you read instructions, pamphlets, or other written material from your doctor or pharmacy? Not on file 09/21/2024 Financial Risk Answer Date Recorded How hard is it for you to pa y for the very basics like food, housing, medical care, and air conditioning / heating? Not very hard 09/21/2024 Transportation Answer Date Recorded Has the lack of transportati on kept you from meetings, work, or from getting things needed for daily living? No Has the lack of transportati on kept you from medical appointments or from getting medications? No 09/21/2024 Social Isolation Answer Date Recorded How often do you feel lonely or isolated from th ose around you? Never 09/21/2024 Food Risk Answer Date Recorded Within the past 12 months we worried whether our food would run out before we got money to buy more. Never true 09/21/2024 Within the past 12 months th e food we bought just didn't last and we didn't have money to get more. Never true 09/21/2024 Dependent Care Answer Date Recorded Do you need help finding or paying for care for your loved ones. For example, director of early childhood education or elderly care for an older adult? No 09/21/2024 Education Answer Date Recorded Do you think completing more education or training, like finishing a GED, going to college, or learning a trade, would be helpful for you? N/A 09/21/2024 Employment and Income Answer Date Recor ded During the last four weeks, have you been actively looking for work? No 09/21/2024 Living Situation Answer Date Recorded What is your living situation? 0 09/21/2024 Comments No Sex and Gender Information Value Date Recorded Sex Assigned at Female 04/30/2024 9:40 AM EST Legal Sex Female 10:43 PM EST Gender Identity Female 04/30/2024 9:40 AM EST Sexual Orientation Straight 09/24/2024 10 :22 AM EDT Obstetrics History Last Filed Vital Signs Vital Sign Reading Time Taken Comments Blood Pressure 120/70 09/21/2024 8:43 AM EDT Pulse 66 09/21/2024 8:26 AM EDT Temperature 35.6 ??C (96 ??F) 09/21/2024 8:26 AM EDT Respiratory Rate 14 09/21/2024 8:26 AM EDT Oxygen Saturation 97% 07/29/2024 10:19 AM EST Inhaled Oxygen Concentration - - Weight 83.5 kg (184 lb) 09/21/2024 8:26 AM EDT Height 157.5 cm (5' 2 ) 09/21/2024 8:26 AM EDT Body Mass Index 33.65 09/21/2024 8:26 AM EDT Plan of Treatment Upcoming Encounters Date Type Department Care Team (Late st Contact Info) Description 10/21/2024 10:00 AM EDT [facility]ointment [facility] [address] [phone] 03/23/2025 8:30 AM EDT Office Visit Adult Medicine [address] [place] [phone] Braulio Merlos PA [address] [place] [address] 04/28/2025 10:00 AM EST Office Visit [facility] Hematology Oncology [address] [place] [phone] Tequila Mota MD [address] [place] [address] Health Maintenance Due Date Last Done Comments Hepatitis B Vaccines (1 of 3 - Risk 3-dose series) 2005 RSV Immunization Adult Patients (1 - 1-dose 75+ series) 2020 01/29/2023 Medicare Annual Wellness Visit 05/04/2022 COVID-19 Vaccine (9 - Moderna risk 2023- season) 2024 03/25/2024, 02/19/2023, 01/30/2022, Additional history exists Hypertension/CHF/CAD Annual BMP Blood Test 09/16/2025 09/16/2024, 07/24/2024, 06/30/2024, Additional history exists Depression Screening 09/21/2025 09/21/2024 Falls Risk Assessment 09/21/2025 09/21/2024 Social Influencers of Health Screening 09/21/2025 09/21/2024 DTaP,Tdap,and Td Vaccines (3 - Td or Tdap) 07/08/2027 07/08/2017, 10/03/2006 Cholesterol Screening (Lipid Panel) 09/16/2029 09/16/2024, 01/28/2024, 11/04/2023 Osteoporosis Screening (Bone Density Screening) 11/02/2032 11/02/2022, 09/19/2020 Hepatitis A Vaccines Completed 12/26/2007, 10/04/19 07 Pneumococcal Vaccine: 50+ Years Completed 09/30/2014, 06/27/2011 Zoster Vaccines Completed 05/12/2019, 10/25, 02/08/2018, Additional history exists RSV Immunization Patients Under 20 months Aged Out 01/29/2023 No longer eligible based on patient's age to complete this topic Influenza Vaccine Completed 03/25/2024, , 03/16/2022, Additional history exists Hepatitis C Screening Completed 09/16/2024 HIB Vaccines Aged Out No longer eligi [...] Procedure Name Priority Date/Time Associated Diagnosis Comments HEMOGLOBIN A1C Routine 09/16/2024 11:26 AM EDT Mixed hyperlipidemia Impaired fasting blood sugar Fatty liver LIPID PANEL WITH REFLEX TO DIRECT LDL Routine 09/16/2024 11:26 AM EDT Mixed hyperlipidemia Impaired fasting blood sugar Fatty liver COMPREHENSIVE METABOLIC PANEL Routine 09/16/2024 11:26 AM EDT Mixed hyperlipidemia Impaired fasting blood sugar Fatty liver HEPATITIS C ANTIBODY Routine 09/16/2024 11:26 AM EDT Mixed hyperlipidemia Impaired fasting blood sugar Fatty liver ..MISCELLANEOUS REFERENCE LAB TEST 07/29/2024 MANUAL DIFFERENTIAL - SYSMEX WAM Routine 07/24/2024 12:30 PM EST Thrombocythemia, essential (CMS/HCC V24, CMS/HCC V28) CBC WITH AUTO DIFFERENTIAL Routine 07/24/2024 12:30 PM EST Thrombocythemia, essential (CMS/HCC V24, CMS/HCC V28) CBC AND DIFFERENTIAL Routine 07/24/2024 12:30 PM EST Thrombocythemia, essential (CMS/HCC V24, CMS/HCC V28) COMPREHENSIVE METABOLIC PANEL Routine 07/24/2024 12:30 PM EST Thrombocythemia, essential ([facility] V24, [facility] V28) DXA BONE DENSITY STUDY 1+ SITS AXIAL SKEL Routine 11/02/2022 9:46 AM EDT Prediabetes Mixed hyperlipidemia Heartburn Fatty (change of) liver, not elsewhere classified Essential (hemorrhagic) thrombocythemia ([facility] V24, [facility] V28) from Last 3 Months or Most Recently Relevant to Health Maintenance Results * Hepatitis C antibody (09/16/2024 11:26 AM EDT) [facility] Hepatitis C Antibody Negative Negative LAB CHEMISTRY METHOD 09/16/2024 4:40 PM EDT [facility] Blood Venous blood specimen / Unknown Venipuncture / Unknown 09/16/2024 11:26 AM EDT 09/16/2024 11:26 AM EDT Braulio NAYAK LAB BLOOD ORDERABLES More l Result [facility] [address] [place] [address], * (ABNORMAL) Lipid panel with reflex to direct LDL (09/16/2024 11:26 AM EDT) [facility] Cholesterol 161 0 - 200 mg/dL LAB CHEMISTRY METHOD 09/16/2024 2:44 PM EDT [facility] Triglycerides 155(H) 0 - 150 mg/dL LAB CHEMISTRY METHOD 09/16/2024 2:44 PM EDT [facility] HDL 70 >=40 mg/dL LAB CHEMISTRY METHOD 09/16/2024 2:44 PM EDT [facility] LDL Calculated 60 0 - 100 mg/dL LAB CHEMISTRY METHOD 09/16/2024 2:44 PM EDT [facility] VLDL Cholesterol Pradeep 31 mg/dL LAB CHEMISTRY METHOD 09/16/2024 2:44 PM EDT [facility] Non HDL Chol. (LDL+VLDL) 91 <145 mg/dL LAB CHEMISTRY METHOD 09/16/2024 2:44 PM EDT [facility] Chol/HDL Ratio 2.3 0.0 - 4.4 LAB CHEMISTRY METHOD 09/16/2024 2:44 PM EDT [facility] Blood Venous blood specimen / Unknown Venipuncture / Unknown 09/16/2024 11:26 AM EDT 09/16/2024 11:26 AM EDT Braulio NAYAK LAB BLOOD ORDERABLES More l Result Performing Organization Address [facility]/ZIP Co de Phone Number [facility] [address] [place] [address], [place] [phone] * Hemoglobin A1c (09/16/2024 11:26 AM EDT) Hemoglobin A1C 6.1 <6.5 % LAB CHEMISTRY METHOD 09/16/2024 8:02 PM EDT [facility] Mean Bld Glu Estim. 128 mg/dL LAB CHEMISTRY METHOD 09/16/2024 8:02 PM EDT [facility] Blood Venous blood specimen / Unknown Venipuncture / Unknown 09/16/2024 11:26 AM EDT 09/16/2024 11:26 AM EDT Braulio NAYAK LAB BLOOD ORDERABLES More l Result [facility] [address] [place] [address], [place] [phone] * (ABNORMAL) Comprehensive metabolic panel (09/16/2024 11:26 AM EDT) Only the most recent of2 resultswithin the time period is included. Sodium 137 133 - 145 mmol/L LAB CHEMISTRY METHOD 09/16/2024 2:44 PM [facility] Potassium 5.0 3.5 - 5.5 mmol/L LAB CHEMISTRY METHOD 09/16/2024 2:44 PM [facility] Chloride 104 96 - 110 mmol/L LAB CHEMISTRY METHOD 09/16/2024 2:44 PM [facility] CO2 26 21 - 32 mmol/L LAB CHEMISTRY METHOD 09/16/2024 2:44 PM [facility] Anion Gap 7 3 - 11 LAB CHEMISTRY METHOD 09/16/2024 2:44 PM [facility] Glucose 115(H) 70 - 100 mg/dL LAB CHEMISTRY METHOD 09/16/2024 2:44 PM [facility] BUN 19 5 - 25 mg/dL LAB CHEMISTRY METHOD 09/16/2024 2:44 PM [facility] Creatinine 0.69 0.50 - 1.10 mg/dL LAB CHEMISTRY METHOD 09/16/2024 2:44 PM [facility] eGFR 88 >=60 mL/min/1. 73m2 LAB CHEMISTRY METHOD 09/16/2024 2:44 PM [facility] Comment:Calculation based on the??Chronic Kidney Disease Epidemiology Collaboration (CKD-EPI) equation refit??without adjustment for race. BUN/Creatinine Ratio 27.5 LAB CHEMISTRY METHOD 09/16/2024 2:44 PM [facility] Calcium 9.5 8.5 - 10.5 mg/dL LAB CHEMISTRY METHOD 09/16/2024 2:44 PM [facility] AST (SGOT) 18 10 - 42 unit/L LAB CHEMISTRY METHOD 09/16/2024 2:44 PM [facility] ALT (SGPT) 25 10 - 60 unit/L LAB CHEMISTRY METHOD 09/16/2024 2:44 PM [facility] Alkaline Phosphatase 47 42 - 121 unit/L LAB CHEMISTRY METHOD 09/16/2024 2:44 PM EDT [facility] Total Protein 7.2 6.0 - 8.0 g/dL LAB CHEMISTRY METHOD 09/16/2024 2:44 PM EDT [facility] Albumin 4.0 3.2 - 5.0 g/dL LAB CHEMISTRY METHOD 09/16/2024 2:44 PM EDT [facility] Total Bilirubin 1.0 0.0 - 1.4 mg/dL LAB CHEMISTRY METHOD 09/16/2024 2:44 PM EDT [facility] Blood Venous blood specimen / Unknown Venipuncture / Unknown 09/16/2024 11:26 AM EDT 09/16/2024 11:26 AM EDT Braulio NAYAK LAB BLOOD ORDERABLES More anderson Result [facility] [address] [place] [address], * Miscellaneous reference lab test (07/29/2024) us Provider Onbase MD LAB BLOOD ORDERABLES Final Re sult * (ABNORMAL) Manual differential (07/24/2024 12:30 PM EST) Neutrophils % 53.0 % LAB HEMETOLOGY METHOD 07/24/2024 2:01 PM [facility] Lymphocytes % 19.0 % LAB HEMETOLOGY METHOD 07/24/2024 2:01 PM [facility] Reactive Lymphocyte 18.00 % LAB HEMETOLOGY METHOD 07/24/2024 2:01 PM [facility] Monocytes % 5.0 % LAB HEMETOLOGY METHOD 07/24/2024 2:01 PM [facility] Eosinophils % 4.0 % LAB HEMETOLOGY METHOD 07/24/2024 2:01 PM [facility] Basophils % 1.0 % LAB HEMETOLOGY METHOD 07/24/2024 2:01 PM [facility] Myelocytes % 1.0(H) % LAB HEMETOLOGY METHOD 07/24/2024 2:01 PM [facility] Neutrophils Absolute Manual 3.71 1.50 - 7.00 K/mcL LAB HEMETOLOGY METHOD 07/24/2024 2:01 PM [facility] Lymphocytes Absolute 1.33 1.00 - 5.00 K/mcL LAB HEMETOLOGY METHOD 07/24/2024 2:01 PM [facility] Reactive Lymph Abs Manual 1.26(H) 0.00 - 0.00 lym LAB HEMETOLOGY METHOD 07/24/2024 2:01 PM [facility] Monocytes Absolute Manual 0.35 0.20 - 1.00 K/mcL LAB HEMETOLOGY METHOD 07/24/2024 2:01 PM [facility] Eosinophils Absolute Manual 0.28 0.00 - 0.50 K/mcL LAB HEMETOLOGY METHOD 07/24/2024 2:01 PM [facility] Basophils Absolute Manual 0.07 0.00 - 0.20 K/mcL LAB HEMETOLOGY METHOD 07/24/2024 2:01 PM [facility] Myelocytes Absolute Manual 0.07(H) 0.00 - 0.00 K/mcL LAB HEMETOLOGY METHOD 07/24/2024 2:01 PM [facility] Rbc Morphology Consistent with indices Consistent with indices, Normal for [place] LAB HEMETOLOGY METHOD 07/24/2024 2:01 PM [facility] Platelet Morphology - WAM See Note(A) Normal LAB HEMETOLOGY METHOD 07/24/2024 2:01 PM [facility] Comment:PLT: Normal Blood Venous blood specimen / Unknown Venipuncture / Unknown 07/24/2024 12:30 PM EST 07/24/2024 1:16 PM EST us Tequila Mota MD LAB BLOOD ORDERABLES Final R esult [facility] [address] [place] [address], [place] [phone] * (ABNORMAL) CBC auto differential (07/24/2024 12:30 PM EST) WBC 7.0 4.8 - 10.8 K/mcL LAB HEMETOLOGY METHOD 07/24/2024 2:01 PM [facility] RBC 4.10 3.80 - 4.80 M/mcL LAB HEMETOLOGY METHOD 07/24/2024 2:01 PM [facility] Hemoglobin 12.9 11.5 - 16.0 g/dL LAB HEMETOLOGY METHOD 07/24/2024 2:01 PM [facility] Hematocrit 40.0 35.0 - 47.0 % LAB HEMETOLOGY METHOD 07/24/2024 2:01 PM [facility] MCV 97.3 79.0 - 98.0 FL LAB HEMETOLOGY METHOD 07/24/2024 2:01 PM [facility] MCH 31.4 27.0 - 32.0 pcg LAB HEMETOLOGY METHOD 07/24/2024 2:01 PM [facility] MCHC 32.3 32.0 - 37.0 g/dL LAB HEMETOLOGY METHOD 07/24/2024 2:01 PM [facility] RDW 13.7 11.0 - 15.0 % LAB HEMETOLOGY METHOD 07/24/2024 2:01 PM [facility] Platelets 891(H) 130 - 400 K/mcL LAB HEMETOLOGY METHOD 07/24/2024 2:01 PM [facility] MPV 9.5 7.0 - 11.0 FL LAB HEMETOLOGY METHOD 07/24/2024 2:01 PM EST [facility] NRBC 0.0 <1.0 % LAB HEMETOLOGY METHOD 07/24/2024 2:01 PM EST [facility] NRBC Absolute 0.00 <0.10 K/mcL LAB HEMETOLOGY METHOD 07/24/2024 2:01 PM EST [facility] Blood Venous blood specimen / Unknown Venipuncture / Unknown 07/24/2024 12:30 PM EST 07/24/2024 1:16 PM EST us Tequila Mota MD LAB BLOOD ORDERABLES Final R esult [facility] [address] [place] [address], * DXA BONE DENSITY STUDY 1+ SITS [...] alternative screening schedule based on atul Bolanos., [facility] June 14, 2011 for patients with osteopenia [...] alternative screening schedule based on atul Bolanos., [facility] [place] [place] for patients with osteopenia (based on hip BMD T-score) is as follows: * advanced osteopenia (T scores -2.00 to -2.49), BMD testing every year * moderate osteopenia (T scores -1.50 to -1.99), BMD testing every 5years mild osteopenia or normal BMD (T scores -1.50 and higher), BMD testingevery 15 years Braulio NAYAK IM DXA PROCEDURES Final Result from Last 3 Months or Most Recently Relevant to Health Maintenance Insurance [facility] Care Teams Brush Polisher Relationship Specialty Start Date End Date Braulio Merlos PA [address] [place] [address] PCP - General Internal Medicine 08/03/20
--- OUTSIDE RECORDS SUMMARY | 2024-09-30 12:12 | XMS_ITS | Clinical Summary ---
Author Organization [facility] Address [address] [place] [address] Care Team Providers Care Business Intelligence Director Name Role Phone Braulio Merlos PA-C Primary [...] age to complete this topic Care Teams Business Intelligence Director Relationship Specialty Start Date End Date Braulio Merlos, PASatishC PCP - General Medical Services 10/05/20
== END 2024-09-30 09:59 | disposition home or self-care (01) ==
LOC: HO.XRAY 09:58
PROVIDERS: PCP Physician Assistant Medical; Visit Provider Anesthesiology
DX: M16.12 Unilateral primary osteoarthritis, left hip (principal)
CPT/HCPCS: 73502

== ENCOUNTER 2024-09-30 09:58 | Outpatient (AMB) | payer BC, SELFPAY ==
--- NOTE | 2024-09-30 10:06 | A.OFFVIS_ITS ---
Vital Signs 09/30/24 10:07 Height 5 ft 2 in Weight 182 lb 8 oz BMI 33.4 BP 134/63 Blood Pressure Location Lt brachial Position Sitting Pulse 66 Pulse Source Pulse Oximeter Pulse Oximetry (%) 97 Oxygen Delivery Method Room Air Intake Visit Reasons: 3 weeks fu/patient req Allergies latex Allergy (Mild, Verified 09/03/24 09:56) Unknown HPI Comments Details: Fina is back in my office for the follow-up. The patient was previously complaining on pain in the lower back radiating to the left side. Attention was attracted today that her pain is rather in the left flank left hip and left groin. On physical exam the pain is much aggravated with the lateral but not medial rotation of the hip/femoral bone. I suspect left hip osteoarthritis. I will schedule her for the x-ray of the left hip. Treatment of the left hip with the injection is possible however this patient is very much osteoporotic. Possibility to treat her pain with [employer] spinal cord stimulator positioned in the left gutter could be considered. Possibility to treat her pain with total hip replacement of the advanced arthritis will be detected on the x-ray also discussed with the patient. I will see this patient in 10 days. Prior: complains on pain in the lower back more to the left with radiation into the left lower extremity to the level of the knee and filling of the sensation of the he below the level of the knee. She reports that the pain is most severe when she is standing she reports pain aggravation when she attempts to sit but denies pain with prolonged sitting. She reports flexing forward and flexing backwards equally aggravate her pain. She believes that her pain is related to compression fracture of L5 vertebra which she received in June. Dr. Lena Stringer performed kyphoplasty on the patient however kyphoplasty was not very helpful for her pain control. She had multiple diagnostic studies which were performed in [facility] and [facility]. Those studies are not available for me in full extent. The only thing which I was able to see is image of the 3 slides of the MRI patient received before her kyphoplasty. She did not have MRI after kyphoplasty. Her daughter show me on the phone copy of the report of her left hip x-ray demonstrated multiple changes including arthritis of the hip joint as well as spurs in the projection of greater trochanter. She went for physical therapy at [facility] and she reports that physical therapy made it worse and she was not able to do home exercise programs. She adamantly refuses to go for physical therapy. She was under care of Dr. Luna who performed ?cortisone injection ?on the patient twice. Dr. Luna performed this injections twice the nature of the injections are not known to the patient the anatomical targets are not known to the patient. Somehow she believes that they were disc injections. There is no reports tim ilable for me. Past medical history: The patient is suffering from osteoporosis. She is taking alendronate 70 mg q.week. she in the past had 2 compression fractures of L1 and L2 vertebra. Recently she fractured L5 and kyphoplasties were performed and all of them. She reports that she was diagnose with prediabetes and she controls it with the diet. She admits shortness of breath due to decond itioning. She reports fatty liver disease. She denies lung or heart problems. [facility] Surgical History (Updated 03/26/24 @ 09:34 by Glenis Hyde) H/O kyphoplasty Review of Systems Const All systems reviewed & are unremarkable except as noted in HPI and below ENT Reports Normal hearing present Neuro Reports Normal hearing present, Denies Abnormal speech present, Denies confusion and Denies Sensory deficit (Neuro) Psych Denies confusion Physical Exam Vital Signs: Last Vital Signs Pulse 66 09/30/24 10:07 BP 134/63 09/30/24 10:07 Pulse Ox 97 09/30/24 10:07 Oxygen Delivery Method Room Air 09/30/24 10:07 BMI result Body Mass Index 33.4 Const General: no acute distress; No confusion Nutritional Appearance: obese (Trivial obesity BMI is 33) Orientation/consciousness: patient oriented x3 and No confusion Eyes General: appearance normal, both eyes and all related structures Pupils: Equal, round and reactive pupils present EOM: EOMs intact bilaterally Neck Neck: Yes full ROM Chest Chest palpation & inspection: normal inspection of the chest Resp Effort & Inspection: normal respiratory effort, able to speak in complete sentences, normal respiratory pattern, no audible wheezes and no cough Cardio Jugular venous distension: no JVD GI Inspection: Yes normal to inspection Back/Spine/Pelvis Other: Able to stand on bilateral tiptoes in bilateral heels demonstrating normal strength of bilateral lower extremities. Flexing backwards aggravates pain s lightly more than flexing forward. Juan Pablo test is positive on the left. Pelvic compression test is positive on the left. Pelvic distraction test is positive on the left. Loading test is positive on the left. Lateral and medial rotation of the hip bilaterally do not cause discomfort in the groin. SLR is negative bilaterally. Dorsiflexion at maximal SLR bilateral does not cause aggravation of the pain in the back. Neuro General: patient oriented x3, gait normal and No confusion Cranial nerves: Yes CN's II-XII intact bilaterally, Yes Equal, round and reactive pupils present, Yes Normal hearing present and Yes Ability to bilaterally elevate shoulders present Speech: No Abnormal speech present Gait exam (Neuro): Normal gait present Motor exam (neuro): 5/5 motor strength present throughout Sensory Exam: No Sensory deficit (Neuro) Extrem General: No pedal edema Psych Speech and movement: Normal speech and movement present Affect: normal affect Attitude: cooperative Thought process: Normal thought process present Thought content: Normal thought content present Insight: Good insight present (Psych) Judgement: Good judgement present (Psych) Assessment & Plan Assessment & Plan (1) Sacroiliitis: Code(s): M46.1 - Sacroiliitis, not elsewhere classified Category: Medical (2) Sacroiliac joint dysfunction of left side: Code(s): M53.3 - Sacrococcygeal disorders, not elsewhere classified Category: Medical (3) Spondylosis of lumbar region without myelopathy or radiculopathy: Code(s): M47.816 - Spondylosis without myelopathy or radiculopathy, lumbar region Category: Medical (4) Osteoporosis: Code(s): M81.0 - Age-related osteoporosis without current pathological fracture Category: Medical (5) History of vertebral compression fracture: Code(s): Z87.81 - Personal history of (healed) traumatic fracture Category: Medical (6) Osteoarthritis of left hip: Code(s): M16.12 - Unilateral primary osteoarthritis, left hip Category: Medical Plan Unfortunately the medial branch block on the left which I performed few days ago did not help at all the patient. Attention was attracted today that the most of the pain on the patient is coming from possibly osteoarthritis of the left hip joint. Left hip arthritis x-ray will be scheduled. We will see patient in 10 days. The injection of the steroids into the left hip probably is a poor option for this patient she has advanced osteoporosis and she had 3 (T12, L1, L5) spinal compression fractures.. If the OA is very severe she might be a candidate for total hip replacement. It will be up to Orthopedic surgery to decide whether or not she is appropriate candidate for this procedure. If not alternatively treatment with [employer] spinal cord stimulator could be considered. The electrode needs to be positioned in left lumbar gutter of the spinal canal pre stimulate L1 and L2 nerve roots. Next appointment in 10 days. Orders: Orders XR hip LT min 2V Today M16.12 - Unilateral primary osteoarthritis, left hip Patient Instructions: I here by testify that I spent 30 minutes in conversation with this patient as well as planning her care ordering appropriate studies and organizing this note. Coding Level of Care Code Est Pt Level 4 (88740) Diagnoses Sacroiliitis M46.1 Sacroiliac joint dysfunction of left side M53.3 Spondylosis of lumbar region without myelopathy or radiculopathy M47.816 Osteoporosis M81.0 History of vertebral compression fracture Z87.81 Osteoarthritis of left hip M16.12
[2024-09-30 10:07] VITALS: BP 134/63; PULSE 66; O2SAT 97; BMI 33.4
--- OUTSIDE RECORDS SUMMARY | 2024-09-30 11:01 | XMS_ITS | Clinical Summary ---
Author Organization [facility] Address [address] [place] [address] Care Team Providers Care Wet Finisher Name Role Phone Braulio Merlos PA-C Primary [...] age to complete this topic Care Teams Wet Finisher Relationship Specialty Start Date End Date Braulio Merlos, PASatishC PCP - General Medical Services 10/05/20
--- OUTSIDE RECORDS SUMMARY | 2024-09-30 11:01 | XMS_ITS | Patient Health Record ---
Author Organization [facility] Address [address] [place] [address] Care Team Providers Care Board Certified Behavioral Analyst Name Role Phone Braulio [place] Primary Care Provider Unav ailable Rik Trivedi Unavailable [phone] Allergies Allergen (clinical drug ingredient) Drug/Non Drug [...] Problem Status W/U Status Risk Notes Problem [id number] Leg length discrepancy (M21.70) Active confirmed Plan Of Treatment Pending Test Test Name Order Date X ray : Foot, left 3V 06/20/2021 Insurance Providers Payer Name Payer Address Payer Phone Subscriber Number Group Number Insured Name Patient Relationship to Insured Coverage Start Date Coverage End Date [employer] [address] [place] [phone] [id number] Fina Lin Self - patient is the insured [facility] [address] [place] [address] [phone] [id number] Fina Lin Self - patient is the insured Medical (General) History Medical History History ICD Code Arthritis Back,Hip,and Knee pain CAD (Cholesterol) Chicken pox Measles Numbness Osteoporosis Sciatica Surgical History Surgery Date(Month/Year)
== END 2024-09-30 10:39 | disposition home or self-care (01) ==
LOC: HO.PMC 09:59
PROVIDERS: PCP Physician Assistant Medical; Visit Provider Anesthesiology
DX: M46.1 Sacroiliitis, not elsewhere classified (principal); M53.3 Sacrococcygeal disorders, not elsewhere classified; M47.816 Spondylosis without myelopathy or radiculopathy, lumbar region; M81.0 Age-related osteoporosis without current pathological fracture; Z87.81 Personal history of (healed) traumatic fracture; M16.12 Unilateral primary osteoarthritis, left hip
CPT/HCPCS: 99214

== ENCOUNTER → 2024-09-30 10:56 | Outpatient (BNV) | payer BC, SELFPAY | PROVIDERS: PCP Physician Assistant Medical; Visit Provider Radiology Diagnostic Radiology | DX: M16.12 Unilateral primary osteoarthritis, left hip (principal) | CPT/HCPCS: 73502 ==

== ENCOUNTER 2024-10-08 10:59 | Outpatient (AMB) | payer BC, SELFPAY ==
--- NOTE | 2024-10-08 11:09 | MHC.OFFVIS ---
Vital Signs 10/08/24 11:15 Height 5 ft 2 in Weight 180 lb BMI 32.9 BP 137/62 Blood Pressure Location Lt brachial Position Sitting Pulse 61 Pulse Source Pulse Oximeter Pulse Oximetry (%) 98 Oxygen Delivery Method Room Air Intake Visit Reasons: Follow Up Intake Note: Pain today 01/03 Senior Cobol Developer Required: No Accompanied by: Daughter Allergies latex Allergy (Mild, Verified 10/08/24 11:16) Unknown HPI Comments Details: Fina is back in my office for the follow-up. The patient was previously complaining on pain in the lower back radiating to the left side. She was sent for hip x-ray and it demonstrated narrowing of the intra-articular space but not significant changes demonstrating arthritis. She reports that her pain is severe and intractable and limits her mobility. Possibility exists to try intra-articular hip steroid injection however the patient has severe osteoporosis she already had kyphoplasty perform because of the osteoporotic compression fracture and therefore I believe steroid injections will not be beneficial for the patient. I discussed possibility of treating her pain with spinal cord stimulator [employer] positioned in the left lumbar gutter. Patient was approved for the procedure. Procedure trial was explained to the patient. The patient agreed to go for the procedure. Prior: complains on pain in the lower back more to the left with radiation into the left lower extremity to the level of the knee and filling of the sensation of the he below the level of the knee. She reports that the pain is most severe when she is standing she reports pain aggravation when she attempts to sit but denies pain with prolonged sitting. She reports flexing forward and flexing backwards equally aggravate her pain. She believes that her pain is related to compression fracture of L5 vertebra which she received in June. Dr. Lena Stringer performed kyphoplasty on the patient however kyphoplasty was not very helpful for her pain control. She had multiple diagnostic studies which were performed in [facility]. Those studies are not available for me in full extent. The only thing which I was able to see is image of the 3 slides of the MRI patient received before her kyphoplasty. She did not have MRI after kyphoplasty. Her daughter show me on the phone copy of the report of her left hip x-ray demonstrated multiple changes including arthritis of the hip joint as well as spurs in the projection of greater trochanter. She went for physical therapy at [facility] and she reports that physical therapy made it worse and she was not able to do home exercise programs. She adamantly refuses to go for physical therapy. She was under care of Dr. Luna who performed ?cortisone injection ?on the patient twice. Dr. Luna performed this injections twice the nature of the injections are not known to the patient the anatomical targets are not known to the patient. Somehow she believes that they were disc injections. There is no reports available for me. Past medical history: The patient is suffering from osteoporosis. She is taking alendronate 70 mg q.week. she in the past had 2 compression fractures of L1 and L2 vertebra. Recently she fractured L5 and kyphoplasties were performed and all of them. She reports that she was diagnose with prediabetes and she controls it with the diet. She admits shortness of breath due to deconditioning. She reports fatty liver disease. She denies lung or heart problems. [facility] Surgical History (Updated 03/26/24 @ 09:34 by Glenis Hyde) H/O kyphoplasty Review of Systems Const All systems reviewed & are unremarkable except as noted in HPI and below ENT Reports Normal hearing present Neuro Reports Normal hearing present, Denies Abnormal speech present, Denies confusion and Denies Sensory deficit (Neuro) Psych Denies confusion Physical Exam Vital Signs: Last Vital Signs Pulse 61 10/08/24 11:15 BP 137/62 10/08/24 11:15 Pulse Ox 98 10/08/24 11:15 Oxygen Delivery Method Room Air 10/08/24 11:15 BMI result Body Mass Index 32.9 Const General: no acute distress; No confusion Nutritional Appearance: obese (Trivial obesity BMI is 33) Orientation/consciousness: patient oriented x3 and No confusion Eyes General: appearance normal, both eyes and all related structures Pupils: Equal, round and reactive pupils present EOM: EOMs intact bilaterally Neck Neck: Yes full ROM Chest Chest palpation & inspection: normal inspection of the chest Resp Effort & Inspection: normal respiratory effort, able to speak in complete sentences, normal respiratory pattern, no audible wheezes and no cough Cardio Jugular venous distension: no JVD GI Inspection: Yes normal to inspection Back/Spine/Pelvis Other: Able to stand on bilateral tiptoes in bilateral heels demonstrating normal strength of bilateral lower extremities. Flexing backwards aggravates pain slightly more than flexing forward. Juan Pablo test is positive on the left. Pelvic compression test is positive on the left. Pelvic distraction test is positive on the left. Loading test is positive on the left. Lateral and medial rotation of the hip bilaterally do not cause discomfort in the groin. SLR is negative bilaterally. Dorsiflexion at maximal SLR bilateral does not cause aggravation of the pain in the back. Neuro General: patient oriented x3, gait normal and No confusion Cranial nerves: Yes CN's II-XII intact bilaterally, Yes Equal, round and reactive pupils present, Yes Normal hearing present and Yes Ability to bilaterally elevate shoulders present Speech: No Abnormal speech present Gait exam (Neuro): Normal gait present Motor exam (neuro): 5/5 motor strength present throughout Sensory Exam: No Sensory deficit (Neuro) Extrem General: No pedal edema Psych Speech and movement: Normal speech and movement present Affect: normal affect Attitude: cooperative Thought process: Normal thought process present Thought content: Normal thought content present Insight: Good insight present (Psych) Judgement: Good judgement present (Psych) Assessment & Plan Assessment & Plan (1) Sacroiliitis: Code(s): M46.1 - Sacroiliitis, not elsewhere classified Category: Medical (2) Sacroiliac joint dysfunction of left side: Code(s): M53.3 - Sacrococcygeal disorders, not elsewhere classified Category: Medical (3) Spondylosis of lumbar region without myelopathy or radiculopathy: Code(s): M47.816 - Spondylosis without myelopathy or radiculopathy, lumbar region Category: Medical (4) Osteoporosis: Code(s): M81.0 - Age-related osteoporosis without current pathological fracture Category: Medical (5) History of vertebral compression fracture: Code(s): Z87.81 - Personal history of (healed) traumatic fracture Category: Medical (6) Osteoarthritis of left hip: Code(s): M16.12 - Unilateral primary osteoarthritis, left hip Category: Medical Plan medial branch block on the left which I performed few days ago did not help at all the patient. Patient complains mostly on the left hip pain. X-ray of the left hip demonstrated narrowing of the intra-articular space. Her x-ray changes are not that advanced and yet she is suffering from very severe pain syndrome. She has severe osteoporosis and intra-articular steroid injections could be aggravating her condition. We discussed spinal cord stimulator [employer] positioned in the left gutter trial to alleviate her pain. She agreed to go for the procedure. I will schedule her for this procedure under sedation. Coding Level of Care Code Est Pt Level 3 (15595) Diagnoses Sacroiliitis M46.1 Sacroiliac joint dysfunction of left side M53.3 Spondylosis of lumbar region without myelopathy or radiculopathy M47.816 Osteoporosis M81.0 History of vertebral compression fracture Z87.81 Osteoarthritis of left hip M16.12
[2024-10-08 11:15] VITALS: BP 137/62; PULSE 61; O2SAT 98; BMI 32.9
--- OUTSIDE RECORDS SUMMARY | 2024-10-08 12:10 | XMS_ITS | Clinical Summary ---
Author Organization [facility] Address [address] [place] [address] Phone Care Team Providers Care Grants Administrator Name Role Phone Braulio Merlos Primary Care Provider [phone] Allergies Active Allergy Reactions Criticality Noted Date [...] 04/03/2024 Passage of loose stools 04/03/2024 Sacroiliitis (CMS/[facility] V24) 12/06/2023 Overview (04/03/2024): Last Assessment & [...] this would help her. 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 9) with comorbidity ([facility] V24, CMS/HCC V28) 01/22/2012 Heartburn 10/03/2006 Overview (04/03/2024): Normal EGD on PPI rx 09/24/2011. 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 Overview (04/03/2024): IMO update Disorder of bone and cartilage 06/07/2005 Overview (04/03/2024): IMO update Lumbago 06/07/2005 Encounters Date Type Department Care Team Description 09/21/2024 8:45 AM EDT Office Visit Adult [address] [phone] Braulio Merlos PA Anxiety and depression (Primary Dx); Encounter for screening mammogram for malignant neoplasm of breast; Urinary urgency; Urge incontinence; Essential thrombocytosis (CMS/HCC V24, CMS/HCC V28); Fatty liver; Heartburn; Mixed hyperlipidemia; Prediabetes; Neuropathy; Severe obesity (BMI 35.0-39.9) with comorbidity (CMS/HCC V24, CMS/HCC V28) 07/30/2024 8:30 AM EST Office Visit Adult [address] [phone] Braulio Merlos PA Compression fracture of lumbar vertebra, unspecified lumbar vertebral level, sequela (Primary Dx); Mixed hyperlipidemia; Impaired fasting blood sugar; Fatty liver; Essential thrombocytosis (CMS/HCC V24, CMS/HCC V28); JUAN-2 gene mutation; Severe obesity (BMI 35.0-39.9) with comorbidity (CMS/HCC V24, CMS/HCC V28); Prediabetes; Neuropathy; Heartburn; Hiatal hernia 07/29/2024 10:00 AM EST Office Visit [facility] Hematology Oncology [address] [place] [address] [phone] Tequila Mota MD Essential thrombocytosis (CMS/HCC V24, CMS/HCC V28) (Primary Dx); JUAN-2 gene mutation 07/16/2024 Telephone Adult Medicine [phone] [place] [phone] Braulio Merlos PA Referral 07/13/2024 Telephone Adult Medicine [phone] [place] [phone] Braulio Merlos PA Medication Problem from Last [...] care for your loved ones. For example, children's nursery assistant or elderly care for an older adult? [...] AM EDT [facility]ointment [facility] [address] [phone] 03/23/2025 8:30 AM EDT Office Visit Adult Medicine [address] [place] [phone] Braulio Merlos PA [address] [place] [address] 04/28/2025 10:00 AM EST Office Visit [facility] Hematology Oncology [address] [place] [phone] Tequila Mota MD [address] [place] [address] Health Maintenance Due Date Last Done Comments [...] Routine 07/24/2024 12:30 PM EST Thrombocythemia, essential ([facility]24, [facility] V28) DXA BONE DENSITY STUDY 1+ SITS AXIAL SKEL Routine 11/02/2022 9:46 AM EDT Prediabetes Mixed hyperlipidemia Heartburn Fatty (change of) liver, not elsewhere classified Essential (hemorrhagic) thrombocythemia ([facility] V24, [facility] V28) from Last 3 Months or Most Recently Relevant to Health Maintenance Results * Hepatitis C antibody (09/16/2024 11:26 AM EDT) [facility] Hepatitis C Antibody Negative Negative LAB CHEMISTRY METHOD 09/16/2024 4:40 PM EDT [facility] Blood Venous blood specimen / Unknown Venipuncture / Unknown 09/16/2024 11:26 AM EDT 09/16/2024 11:26 AM EDT Braulio NAYAK LAB BLOOD ORDERABLES More l Result [facility] [address] [place] [address], * (ABNORMAL) Lipid panel with reflex to direct LDL (09/16/2024 11:26 AM EDT) [facility] Cholesterol 161 0 - 200 mg/dL LAB CHEMISTRY METHOD 09/16/2024 2:44 PM EDT [facility] Triglycerides 155(H) 0 - 150 mg/dL LAB CHEMISTRY METHOD 09/16/2024 2:44 PM EDT [facility] HDL 70 >=40 mg/dL LAB CHEMISTRY METHOD 09/16/2024 2:44 PM EDT [facility] LDL Calculated 60 0 - 100 mg/dL LAB CHEMISTRY METHOD 09/16/2024 2:44 PM EDT [facility] VLDL Cholesterol Pradeep 31 mg/dL LAB CHEMISTRY METHOD 09/16/2024 2:44 PM EDT [facility] Non HDL Chol. (LDL+VLDL) 91 <145 mg/dL LAB CHEMISTRY METHOD 09/16/2024 2:44 PM EDT [facility] Chol/HDL Ratio 2.3 0.0 - 4.4 LAB CHEMISTRY METHOD 09/16/2024 2:44 PM EDT [facility] Blood Venous blood specimen / Unknown Venipuncture / Unknown 09/16/2024 11:26 AM EDT 09/16/2024 11:26 AM EDT Braulio NAYAK LAB BLOOD ORDERABLES More l Result Performing Organization Address [facility]/ZIP Co de Phone Number [facility] [address] [place] [address], [place] [phone] * Hemoglobin A1c (09/16/2024 11:26 AM EDT) Hemoglobin A1C 6.1 <6.5 % LAB CHEMISTRY METHOD 09/16/2024 8:02 PM EDT [facility] Mean Bld Glu Estim. 128 mg/dL LAB CHEMISTRY METHOD 09/16/2024 8:02 PM EDT [facility] Blood Venous blood specimen / Unknown Venipuncture / Unknown 09/16/2024 11:26 AM EDT 09/16/2024 11:26 AM EDT Braulio NAYAK LAB BLOOD ORDERABLES More l Result [facility] [address] [place] [address], [place] [phone] * (ABNORMAL) Comprehensive metabolic panel (09/16/2024 11:26 AM EDT) Only the most recent of2 resultswithin the time period is included. Sodium 137 133 - 145 mmol/L LAB CHEMISTRY METHOD 09/16/2024 2:44 PM [facility] Potassium 5.0 3.5 - 5.5 mmol/L LAB CHEMISTRY METHOD 09/16/2024 2:44 PM [facility] Chloride 104 96 - 110 mmol/L LAB CHEMISTRY METHOD 09/16/2024 2:44 PM [facility] CO2 26 21 - 32 mmol/L LAB CHEMISTRY METHOD 09/16/2024 2:44 PM [facility] Anion Gap 7 3 - 11 LAB CHEMISTRY METHOD 09/16/2024 2:44 PM [facility] Glucose 115(H) 70 - 100 mg/dL LAB CHEMISTRY METHOD 09/16/2024 2:44 PM [facility] BUN 19 5 - 25 mg/dL LAB CHEMISTRY METHOD 09/16/2024 2:44 PM [facility] Creatinine 0.69 0.50 - 1.10 mg/dL LAB CHEMISTRY METHOD 09/16/2024 2:44 PM [facility] eGFR 88 >=60 mL/min/1. 73m2 LAB CHEMISTRY METHOD 09/16/2024 2:44 PM [facility] Comment:Calculation based on the??Chronic Kidney Disease Epidemiology Collaboration (CKD-EPI) equation refit??without adjustment for race. BUN/Creatinine Ratio 27.5 LAB CHEMISTRY METHOD 09/16/2024 2:44 PM [facility] Calcium 9.5 8.5 - 10.5 mg/dL LAB CHEMISTRY METHOD 09/16/2024 2:44 PM [facility] AST (SGOT) 18 10 - 42 unit/L LAB CHEMISTRY METHOD 09/16/2024 2:44 PM [facility] ALT (SGPT) 25 10 - 60 unit/L LAB CHEMISTRY METHOD 09/16/2024 2:44 PM [facility] Alkaline Phosphatase 47 42 - 121 unit/L LAB CHEMISTRY METHOD 09/16/2024 2:44 PM EDT [facility] Total Protein 7.2 6.0 - 8.0 g/dL LAB CHEMISTRY METHOD 09/16/2024 2:44 PM EDT [facility] Albumin 4.0 3.2 - 5.0 g/dL LAB CHEMISTRY METHOD 09/16/2024 2:44 PM EDT [facility] Total Bilirubin 1.0 0.0 - 1.4 mg/dL LAB CHEMISTRY METHOD 09/16/2024 2:44 PM EDT [facility] Blood Venous blood specimen / Unknown Venipuncture / Unknown 09/16/2024 11:26 AM EDT 09/16/2024 11:26 AM EDT Braulio NAYAK LAB BLOOD ORDERABLES More anderson Result [facility] [address] [place] [address], * Miscellaneous reference lab test (07/29/2024) us Provider Onbase MD LAB BLOOD ORDERABLES Final Re sult * (ABNORMAL) Manual differential (07/24/2024 12:30 PM EST) Neutrophils % 53.0 % LAB HEMETOLOGY METHOD 07/24/2024 2:01 PM [facility] Lymphocytes % 19.0 % LAB HEMETOLOGY METHOD 07/24/2024 2:01 PM [facility] Reactive Lymphocyte 18.00 % LAB HEMETOLOGY METHOD 07/24/2024 2:01 PM [facility] Monocytes % 5.0 % LAB HEMETOLOGY METHOD 07/24/2024 2:01 PM [facility] Eosinophils % 4.0 % LAB HEMETOLOGY METHOD 07/24/2024 2:01 PM [facility] Basophils % 1.0 % LAB HEMETOLOGY METHOD 07/24/2024 2:01 PM [facility] Myelocytes % 1.0(H) % LAB HEMETOLOGY METHOD 07/24/2024 2:01 PM [facility] Neutrophils Absolute Manual 3.71 1.50 - 7.00 K/mcL LAB HEMETOLOGY METHOD 07/24/2024 2:01 PM [facility] Lymphocytes Absolute 1.33 1.00 - 5.00 K/mcL LAB HEMETOLOGY METHOD 07/24/2024 2:01 PM [facility] Reactive Lymph Abs Manual 1.26(H) 0.00 - 0.00 lym LAB HEMETOLOGY METHOD 07/24/2024 2:01 PM [facility] Monocytes Absolute Manual 0.35 0.20 - 1.00 K/mcL LAB HEMETOLOGY METHOD 07/24/2024 2:01 PM [facility] Eosinophils Absolute Manual 0.28 0.00 - 0.50 K/mcL LAB HEMETOLOGY METHOD 07/24/2024 2:01 PM [facility] Basophils Absolute Manual 0.07 0.00 - 0.20 K/mcL LAB HEMETOLOGY METHOD 07/24/2024 2:01 PM [facility] Myelocytes Absolute Manual 0.07(H) 0.00 - 0.00 K/mcL LAB HEMETOLOGY METHOD 07/24/2024 2:01 PM [facility] Rbc Morphology Consistent with indices Consistent with indices, Normal for [place] LAB HEMETOLOGY METHOD 07/24/2024 2:01 PM [facility] Platelet Morphology - WAM See Note(A) Normal LAB HEMETOLOGY METHOD 07/24/2024 2:01 PM [facility] Comment:PLT: Normal Blood Venous blood specimen / Unknown Venipuncture / Unknown 07/24/2024 12:30 PM EST 07/24/2024 1:16 PM EST us Tequila Mota MD LAB BLOOD ORDERABLES Final R esult [facility] [address] [place] [address], [place] [phone] * (ABNORMAL) CBC auto differential (07/24/2024 12:30 PM EST) WBC 7.0 4.8 - 10.8 K/mcL LAB HEMETOLOGY METHOD 07/24/2024 2:01 PM [facility] RBC 4.10 3.80 - 4.80 M/mcL LAB HEMETOLOGY METHOD 07/24/2024 2:01 PM [facility] Hemoglobin 12.9 11.5 - 16.0 g/dL LAB HEMETOLOGY METHOD 07/24/2024 2:01 PM [facility] Hematocrit 40.0 35.0 - 47.0 % LAB HEMETOLOGY METHOD 07/24/2024 2:01 PM [facility] MCV 97.3 79.0 - 98.0 FL LAB HEMETOLOGY METHOD 07/24/2024 2:01 PM [facility] MCH 31.4 27.0 - 32.0 pcg LAB HEMETOLOGY METHOD 07/24/2024 2:01 PM [facility] MCHC 32.3 32.0 - 37.0 g/dL LAB HEMETOLOGY METHOD 07/24/2024 2:01 PM [facility] RDW 13.7 11.0 - 15.0 % LAB HEMETOLOGY METHOD 07/24/2024 2:01 PM [facility] Platelets 891(H) 130 - 400 K/mcL LAB HEMETOLOGY METHOD 07/24/2024 2:01 PM [facility] MPV 9.5 7.0 - 11.0 FL LAB HEMETOLOGY METHOD 07/24/2024 2:01 PM EST [facility] NRBC 0.0 <1.0 % LAB HEMETOLOGY METHOD 07/24/2024 2:01 PM EST [facility] NRBC Absolute 0.00 <0.10 K/mcL LAB HEMETOLOGY METHOD 07/24/2024 2:01 PM EST [facility] Blood Venous blood specimen / Unknown Venipuncture / Unknown 07/24/2024 12:30 PM EST 07/24/2024 1:16 PM EST us Tequila Mota MD LAB BLOOD ORDERABLES Final R esult [facility] [address] [place] [address], * DXA BONE DENSITY STUDY 1+ SITS [...] evidence of osteoporosis. ??Clinical correlation suggested. The [facility] Department of Internal Medicine recommends using National [...] alternative screening schedule based on atul Bolanos., [facility] June 14, 2011 for patients with [...] presumptiveevidence of osteoporosis. Clinical correlation suggested. The [facility] Department of Internal Medicine recommendsusing National Osteoporosis [...] alternative screening schedule based on atul Bolanos., [facility] for patients with osteopenia (based on [...] [facility] Care Teams Grants Administrator Relationship Specialty Start Date End Date Braulio Merlos PA [address] [place] [address] PCP - General Internal Medicine 08/03/20
--- OUTSIDE RECORDS SUMMARY | 2024-10-08 12:10 | XMS_ITS | Patient Health Record ---
Author Organization [facility] [place] Address [address] [address] Care Team Providers Care Inspector Paper Products Name Role Phone Braulio Madrid Primary Care Provider Unav ailable Rik Trivedi Unavailable [phone] Allergies Allergen (clinical drug ingredient) Drug/Non Drug [...] Problem Status W/U Status Risk Notes Problem [id number] Leg length discrepancy (M21.70) Active confirmed Plan Of Treatment Pending Test Test Name Order Date X ray : Foot, left 3V 06/20/2021 Insurance Providers Payer Name Payer Address Payer Phone Subscriber Number Group Number Insured Name Patient Relationship to Insured Coverage Start Date Coverage End Date Medicare [employer] [address] [place] [phone] [id number] Fina Lin Self - patient is the insured [facility] [address] [place] [address] [phone] [id number] Fina Lin Self - patient is the insured Medical (General) History Medical History History ICD Code Arthritis Back,Hip,and Knee pain CAD (Cholesterol) Chicken pox Measles Numbness Osteoporosis Sciatica Surgical History Surgery Date(Month/Year)
--- OUTSIDE RECORDS SUMMARY | 2024-10-08 12:11 | XMS_ITS | Clinical Summary ---
Author Organization [facility] Address [address] [place] [address] Care Team Providers Care Advertiser Name Role Phone Braulio Merlos PA-C Primary [...] age to complete this topic Care Teams Advertiser Relationship Specialty Start Date End Date Braulio Merlos, PASatishC PCP - General Medical Services 10/05/20
== END 2024-10-08 11:36 | disposition home or self-care (01) ==
LOC: HO.PMC 10:59
PROVIDERS: PCP Physician Assistant Medical; Visit Provider Anesthesiology
DX: M46.1 Sacroiliitis, not elsewhere classified (principal); M53.3 Sacrococcygeal disorders, not elsewhere classified; M47.816 Spondylosis without myelopathy or radiculopathy, lumbar region; M81.0 Age-related osteoporosis without current pathological fracture; Z87.81 Personal history of (healed) traumatic fracture; M16.12 Unilateral primary osteoarthritis, left hip
CPT/HCPCS: 99213

== ENCOUNTER → 2024-10-08 10:59 | Outpatient (BNVA) | payer BC, SELFPAY | PROVIDERS: PCP Physician Assistant Medical; Visit Provider Anesthesiology ==